=== PATIENT | female | born 2000 | race African-American/Black ===

== ENCOUNTER 2022-06-15 19:17 | Observation (INO) ==
[2022-06-15] MEDS ORDERED: ONDANSETRON INJ 2 MG/ML 2 ML VIAL IV STA (19:23)
[2022-06-15 20:43] LABS: Basophils # (auto) 0.04 K/uL (0-0.2); Basophils % (auto) 0.6 %; Hematocrit (blood only) 43.9 % (37.0-47.0); Hemoglobin 15.5 g/dl (12.0-16.0); Immature Granulocytes # (auto) 0.01 K/uL (0.01-0.20); Immature Granulocytes % (auto) 0.1 %; Lymphocytes # (auto) 2.34 K/uL (1.2-3.4); Lymphocytes % (auto) 33.5 %; Mean Corpuscular Hemoglobin 31.6 pg (25.0-34.0); Mean Corpuscular Hgb Conc 35.3 g/dL (32.0-36.0); Mean Corpuscular Volume 89.4 fL (80.0-100.0); Mean Platelet Volume 10.1 fL (9.4-12.4); Monocytes # (auto) 0.42 K/uL (0.11-0.59); Neutrophils # (auto) 4.17 K/uL (1.40-6.50); Neutrophils % (auto) 59.8 %; Platelet Count 265 K/uL (130-400); RDW Coefficient of Variation 11.5 % (11.5-14.5); RDW Standard Deviation 37.6 fL (36.4-46.3); Red Blood Count 4.91 M/uL (4.20-5.40); White Blood Count 6.98 K/ul (4.8-10.8)
--- NOTE | 2022-06-15 21:19 | Emergency Department Note ---
Impression & Plan Nausea & vomiting, Marijuana user, UTI (urinary tract infection) ED Provider Note INFORMANT: Patient ED PROVIDER(S): Cj Tanner DO CHIEF COMPLAINT: Nausea and vomiting PLAN: Disposition: Admission Outpatient prescription management: none Discussion with: I spoke with the hospitalist, who will see the patient for admission/observation and further evaluation and consultation. MEDICAL DECISION MAKING: This is a 21-year-old female who presents to the ED with a chief complaint of nausea and vomiting. Symptoms started on Tuesday morning. She reports mostly dry heaves at this point. About every 2 hours. She was seen here yesterday and discharged on Zofran ODT which did not help. The patient does admit to using marijuana. She had been drinking this weekend prior to her symptom onset. The patient reports generalized abdominal discomfort related to her retching. She did not have any abdominal pain yesterday or tenderness. The patient denies any diarrhea. No urinary symptoms. Exam does reveal some mild diffuse abdominal tenderness likely related to vomiting. No focal tenderness. Vital signs reveal hypertension. CBC did not show leukocytosis or anemia. Chemistry panel did not show electrolyte abnormality or kidney dysfunction. The urinalysis suggest a UTI. She was given IV fluids as well as IV Zofran and IV cefepime. Because of her ongoing dry heaves, she will be seen by the hospitalist for further inpatient management of her UTI and vomiting. Triage Nursing notes reviewed. Vital Signs: reviewed Prior /Outside records reviewed:Yesterday's ER visit reviewed Differential diagnosis: Nausea, vomiting, dehydration, electrolyte abnormality, pancreatitis, cholecystitis, hyperemesis related to marijuana use Diagnostics, as interpreted by me: 12 lead ECG: none Cardiac Monitoring ordered: none Medical decision rules: none Imaging studies: none Procedures: none. Critical care: none. HPI: See MDM above. PAST MEDICAL HISTORY: See Below PAST SURGICAL HISTORY: See Below SOCIAL HISTORY: See Below HOME MEDICATIONS: See Below ALLERGIES: See Below VITALS: See Below PHYSICAL EXAMINATION: See MDM for positive findings otherwise unremarkable. CONSTITUTIONAL/VITAL SIGNS: Reviewed GENERAL:done as appropriate INTEGUMENTARY: done as appropriate HEAD: done as appropriate EYES: done as appropriate RESPIRATORY: done as appropriate CARDIOVASCULAR:done as appropriate GI/ABDOMEN:done as appropriate EXTREMITIES: done as appropriate NEUROLOGICAL: done as appropriate PSYCHIATRIC:done as appropriate MUSCULOSKELETAL:done as appropriate TRIAGE NURSING DOCUMENTATION REVIEWED. Past Med/Surg History Medical History No pertinent family history No pertinent past medical history Surgical History No pertinent past surgical history Social History Smoking Status: Never smoker Preferred Language: Japanese Feels Safe at Home: Yes Allergies Allergies Allergy/AdvReac Type Severity Reaction Status Date / Time No Known Allergies Allergy Verified 06/15/22 21:48 Home Meds Home Medications Medication Instructions Recorded Confirmed Control Pill 1 tab PO DAILY 06/15/22 06/15/22 albuterol sulfate 90 mcg/actuation 2 puff inhalation DIRECTED PRN 06/15/22 06/15/22 aerosol inhaler Shortness Of Breath Or Wheezing Results & Data (ED) Vital Signs Vital Signs - 24 hr 06/15/22 19:20 06/15/22 21:04 06/15/22 20:05 Temperature 37 C Temperature Source Temporal Artery Scan Pulse Rate 72 55 L Pulse Rate [Right Finger] 52 L Respiratory Rate 16 Respiratory Effort / Characteristics Non-Labored Spontaneous Respiratory Depth Normal Respiratory Pattern Regular Blood Pressure 144/99 H Blood Pressure [Right Arm] 141/104 H Blood Pressure Mean 114 Blood Pressure Mean [Right Arm] 116 Pulse Oximetry 99 100 Oxygen Delivery Method Room Air Room Air Sepsis Recent Fever Within 48 Hours No Sepsis New/Unexplained Change in Mental Status No Sepsis Action Taken by Nursing No Action Required 06/15/22 23:30 Temperature Temperature Source Pulse Rate Pulse Rate [Right Finger] 74 Respiratory Rate 16 Respiratory Effort / Characteristics Non-Labored Spontaneous Respiratory Depth Normal Respiratory Pattern Regular Blood Pressure Blood Pressure [Right Arm] 154/91 H Blood Pressure Mean Blood Pressure Mean [Right Arm] 112 Pulse Oximetry 99 Oxygen Delivery Method Room Air Sepsis Recent Fever Within 48 Hours Sepsis New/Unexplained Change in Mental Status Sepsis Action Taken by Nursing Laboratory Data 06/15/22 20:15 06/15/22 20:15 Lab Results 06/15/22 06/15/22 06/15/22 Range/Units 20:15 20:15 21:00 WBC 6.98 (4.8-10.8) K/ul RBC 4.91 (4.20-5.40) M/uL Hgb 15.5 (12.0-16.0) g/dl Hct 43.9 (37.0-47.0) % MCV 89.4 (80.0-100.0) fL MCH 31.6 (25.0-34.0) pg MCHC 35.3 (32.0-36.0) g/dL RDW Std Deviation 37.6 (36.4-46.3) fL RDW Coeff of [place] 11.5 (11.5-14.5) % Plt Count 265 (130-400) K/uL MPV 10.1 (9.4-12.4) fL Immature Gran % (Auto) 0.1 % Neut % (Auto) 59.8 % Lymph % (Auto) 33.5 % [place] % (Auto) 6.0 % Eos % (Auto) 0.0 % Baso % (Auto) 0.6 % Neut # (Auto) 4.17 (1.40-6.50) K/uL Lymph # (Auto) 2.34 (1.2-3.4) K/uL [place] # (Auto) 0.42 (0.11-0.59) K/uL Eos # (Auto) 0.00 (0-0.50) K/uL Baso # (Auto) 0.04 (0-0.2) K/uL Immature Gran # (Auto) 0.01 (0.01-0.20) K/uL Sodium 137 (136-145) mmol/L Potassium 3.5 (3.5-5.1) mmol/L Chloride 98 (98-107) mmol/L Carbon Dioxide 29 (21-32) mmol/L Anion Gap 10 (3-11) BUN 14 (6-23) mg/dl Creatinine 0.89 (0.6-1.2) mg/dl Est Cr Clr Drug Dosing 71.8 ml/min Est GFR ( Amer) 107.4 ml/min Est GFR (Non-Af Amer) 92.6 ml/min BUN/Creatinine Ratio 15.7 (10-20) Glucose 96 (70-99(Fasting)) mg/dl Calcium 10.6 H (8.5-10.1) mg/dl Total Bilirubin 2.2 H D (0.2-1.0) mg/dl AST 21 (13-39) U/L ALT 17 (7-52) U/L Alkaline Phosphatase 65 (34-104) U/L Total Protein 8.9 H (6.0-8.3) gm/dl Albumin 5.4 H (3.4-5.0) gm/dl Globulin 3.5 (2.5-4.0) gm/dl Albumin/Globulin Ratio 1.5 (0.9-2) Lipase 17 (11-82) U/L Urine Color Dark Yellow Urine Appearance Cloudy A (Clear) Urine pH 7.5 (4.5-7.5) Ur Specific [place] 1.034 H (1.000-1.030) Urine Protein 1+ H (Negative) Urine Glucose (UA) Negative (Negative) Urine Ketones 4+ H (Negative) Urine Blood Trace H (Negative) Urine Nitrite Positive A (Negative) Urine Bilirubin Negative (Negative) Urine Urobilinogen Positive H (Negative) Ur Leukocyte Esterase 1+ H (Negative) Urine WBC (Auto) >30 H (0-5) /hpf Urine RBC (Auto) 0-4 (0-4) /hpf U Hyaline Cast (Auto) 0 (0-5) /lpf U Epithel Cells (Auto) >30 H (0-5) /lpf Urine Bacteria (Auto) 2+ H (Negative) Triple Phos Crystals Present A (None Prsent) Urine Mucus Present A (None Prsent) POC Ur Test (NEG) 06/15/22 Range/Units 21:08 WBC (4.8-10.8) K/ul RBC (4.20-5.40) M/uL Hgb (12.0-16.0) g/dl Hct (37.0-47.0) % MCV (80.0-100.0) fL MCH (25.0-34.0) pg MCHC (32.0-36.0) g/dL RDW Std Deviation (36.4-46.3) fL RDW Coeff of [place] (11.5-14.5) % Plt Count (130-400) K/uL MPV (9.4-12.4) fL Immature Gran % (Auto) % Neut % (Auto) % Lymph % (Auto) % [place] % (Auto) % Eos % (Auto) % Baso % (Auto) % Neut # (Auto) (1.40-6.50) K/uL Lymph # (Auto) (1.2-3.4) K/uL [place] # (Auto) (0.11-0.59) K/uL Eos # (Auto) (0-0.50) K/uL Baso # (Auto) (0-0.2) K/uL Immature Gran # (Auto) (0.01-0.20) K/uL Sodium (136-145) mmol/L Potassium (3.5-5.1) mmol/L Chloride (98-107) mmol/L Carbon Dioxide (21-32) mmol/L Anion Gap (3-11) BUN (6-23) mg/dl Creatinine (0.6-1.2) mg/dl Est Cr Clr Drug Dosing ml/min Est GFR ( Amer) ml/min Est GFR (Non-Af Amer) ml/min BUN/Creatinine Ratio (10-20) Glucose (70-99(Fasting)) mg/dl Calcium (8.5-10.1) mg/dl Total Bilirubin (0.2-1.0) mg/dl AST (13-39) U/L ALT (7-52) U/L Alkaline Phosphatase (34-104) U/L Total Protein (6.0-8.3) gm/dl Albumin (3.4-5.0) gm/dl Globulin (2.5-4.0) gm/dl Albumin/Globulin Ratio (0.9-2) Lipase (11-82) U/L Urine Color Urine Appearance (Clear) Urine pH (4.5-7.5) Ur Specific [place] (1.000-1.030) Urine Protein (Negative) Urine Glucose (UA) (Negative) Urine Ketones (Negative) Urine Blood (Negative) Urine Nitrite (Negative) Urine Bilirubin (Negative) Urine Urobilinogen (Negative) Ur Leukocyte Esterase (Negative) Urine WBC (Auto) (0-5) /hpf Urine RBC (Auto) (0-4) /hpf U Hyaline Cast (Auto) (0-5) /lpf U Epithel Cells (Auto) (0-5) /lpf Urine Bacteria (Auto) (Negative) Triple Phos Crystals (None Prsent) Urine Mucus (None Prsent) POC Ur Test NEG (NEG) Administered Medications Discontinued Medications Cefepime HCl (Maxipime) 2,000 mg in 20 mls @ 5 mls/min IV NOW STA; Protocol Stop: 06/15/22 22:07 Last Admin: 06/15/22 22:18 Dose: 5 mls/min Documented By: MEGHA Ondansetron HCl (Ondansetron Inj 2 Mg/Ml 2 Ml Vial) 4 mg IV NOW STA Stop: 06/15/22 19:24 Last Admin: 06/15/22 21:00 Dose: 4 mg Documented By: MEGHA Discharge Plan Visit Data Chief Complaint: Vomiting Stated Complaint: NAUSEA, VOMITING, BEEN VOMITING SINCE TUESDAY ED Provider: Cj Tanner Discharge Problem: Nausea & vomiting, Marijuana user, UTI (urinary tract infection) Patient Disposition: Being Evaluated by Hospitalist Forms Stand Alone Forms: My [facility] [employer] Prescriptions Prescriptions: No Action albuterol sulfate 90 mcg/actuation Hfa Aerosol Inhaler 2 puff INHALATION DIRECTED PRN (Reason: Shortness Of Breath Or Wheezing) Control Pill 1 tab PO DAILY Referrals Referrals: Subha Hoang DO [Primary Care Provider] -
[2022-06-15 21:21] LABS: Albumin Globulin Ratio 1.5 (0.9-2); Albumin Level 5.4 gm/dl (3.4-5.0); BUN Creatinine Ratio 15.7 (10-20); Bilirubin,Total 2.2 mg/dl (0.2-1.0); Calcium 10.6 mg/dl (8.5-10.1); Creatinine Clr Calc Pharmacy 71.8 ml/min; Est GFR (African American) 107.4 ml/min; Est GFR (Non-African American) 92.6 ml/min; Globulin 3.5 gm/dl (2.5-4.0); Potassium 3.5 mmol/L (3.5-5.1); Total Protein 8.9 gm/dl (6.0-8.3)
[2022-06-15 21:34] LABS: Appearance Urine Cloudy (Clear); Bacteria Urine Automated 2+ (Negative); Bilirubin Urine Negative (Negative); Blood Urine Trace (Negative); Color Urine Dark Yellow; Epithelial Cell Urine Auto >30 /lpf (0-5); Glucose Urine UA Negative (Negative); Ketones Urine 4+ (Negative); Leukocyte Esterase Urine 1+ (Negative); Nitrite Urine Positive (Negative); Specific Gravity Urine 1.034 (1.000-1.030); Urobilinogen Urine Positive (Negative); WBC Urine Automated >30 /hpf (0-5); pH Urine 7.5 (4.5-7.5)
[2022-06-15 22:01] LABS: Protein Urine 1+ (Negative)
[2022-06-15] MEDS ORDERED: CEFEPIME 2,000 MG/20 ML VIAL IV STA (22:04)
[2022-06-15 22:22] LABS: Triple Phosphate Crystal Urine Present (None Prsent)
[2022-06-15 22:23] LABS: Cast Urine Automated 0 /lpf (0-5); Mucus Urine Present (None Prsent); RBC Urine Automated 0-4 /hpf (0-4)
[2022-06-16 00:29] LABS: Amphetamines+Metham, Urine Neg (Neg); Barbiturates, Urine Neg (Neg); Benzodiazepine, Urine Neg (Neg); Cocaine, Urine Neg (Neg); MDMA (Ecstacy), Urine Neg (Neg); Methadone, Urine Neg (Neg); Opiate, Urine Neg (Neg); Phencyclidine, Urine Neg (Neg)
--- NOTE | 2022-06-16 01:06 | History & Physical Report ---
Date of Service June 16, 2022 Assessment & Plan (1) Cannabinoid hyperemesis syndrome: (2) Nausea & vomiting: (3) Marijuana user: (4) UTI (urinary tract infection): (5) Gilbert's syndrome: Plan Cannabinoid hyperemesis syndrome- Likely cause of intractable nausea and vomiting UDS positive for marijuana CT scan read as normal, but suggestive of ileus Continue n.p.o. for now, until symptoms are improved enough to be able to start liquid diet Zofran 4 mg IV every 6 hours as needed Phenergan 12.5 mg IV every 6 hours as needed NSS plus KCl 20 mEq at 125 MLS per hour UTI- Follow urine culture sensitivity Given cefepime 2 g IV from the ED Place on ceftriaxone 1 g IV daily Gilbert's syndrome- Total bilirubin 2.2, with otherwise normal LFTs History of Present Illness Chief Complaint: The patient presents to the emergency department with intractable nausea and vomiting since she was at a [employer] on Tuesday night, 3 nights ago. Primary Care Provider: Subha Hoang DO The patient is a 21-year-old female with a past medical history including asthma, marijuana use, and use of control pills. 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 She denies any abnormal food ingestions. She is not aware of any sick exposures. She does not have any change in bowel habits such as diarrhea. Significant abnormal laboratories: Hemoglobin 15.5, hematocrit 43.9, potassium 3.5, total bilirubin 2.2. Urinalysis suggestive of urinary tract infection Urine drug screen added is positive for marijuana. CT scan of abdomen and pelvis read by stat read as normal. CT scan from my reading suggest an ileus Allergies Allergy/AdvReac Type Severity Reaction Status Date / Time No Known Allergies Allergy Verified 06/15/22 21:48 Home Medications Medication Instructions Recorded Confirmed Type Control Pill 1 tab PO DAILY 06/15/22 06/15/22 History albuterol sulfate 90 mcg/actuation 2 puff inhalation DIRECTED PRN 06/15/22 06/15/22 History aerosol inhaler Shortness Of Breath Or Wheezing Past Med/Surg History Medical History No pertinent family history No pertinent past medical history Surgical History No pertinent past surgical history Social History Smoking Status: Never smoker Preferred Language: Ugandan Feels Safe at Home: Yes Review of Systems Review of Systems: The patient denies chest pain, palpitations, shortness of breath, dyspnea on exertion, cough, lower extremity swelling, sore throat, fevers, chills, sweats, blood in urine or stool, dysuria, urinary frequency or urgency, lightheadedness, dizziness, headache, memory loss, loss of consciousness, rash, abnormal bruising or bleeding, imbalance, focal weakness, numbness or tingling in arms or legs, generalized arthralgias or myalgias, back or neck pain, or night sweats. The review of systems is otherwise negative other than for that already noted above, and at least 10 systems have been reviewed. Physical Exam Physical Exam: The patient is awake, alert and oriented 3, well developed and well nourished, normocephalic and atraumatic, lying in bed and in no acute distress. HEENT--PERRL, EOMI, mucous membranes and oropharynx mildly dry. Neck--supple. No JVD. No bruits. Thyroid normal, trachea midline, no adenopathy. Heart--normal S1 and S2. No murmurs, rubs or gallops. Lungs--clear bilaterally, no respiratory distress, no accessory muscle use. Abdomen--normal bowel sounds and soft. Generalized tenderness. Extremities--no cyanosis or clubbing. No edema. Dermatologic--normal skin turgor, normal color, no abnormal lymph nodes, no rash. Neurologic--cranial nerves II through XII grossly intact. Rheumatologic--normal range of motion. Psychiatric--normal affect. Results & Data Results & Data ([facility]) Vital Signs (Past 12 Hours) Vital Signs Temp Pulse Pulse Resp BP BP Pulse Ox 06/15/22 23:30 74 16 154/91 H 99 06/15/22 20:05 55 L 06/15/22 21:04 52 L 141/104 H 100 06/15/22 19:20 37 C 72 16 144/99 H 99 O2 Del Method 06/15/22 23:30 Room Air 06/15/22 20:05 06/15/22 21:04 Room Air 06/15/22 19:20 Room Air Laboratory Results Laboratory Results WBC 6.98 K/ul (4.8-10.8) 06/15/22 20:15 RBC 4.91 M/uL (4.20-5.40) 06/15/22 20:15 Hgb 15.5 g/dl (12.0-16.0) 06/15/22 20:15 Hct 43.9 % (37.0-47.0) 06/15/22 20:15 MCV 89.4 fL (80.0-100.0) 06/15/22 20:15 MCH 31.6 pg (25.0-34.0) 06/15/22 20:15 MCHC 35.3 g/dL (32.0-36.0) 06/15/22 20:15 RDW Std Deviation 37.6 fL (36.4-46.3) 06/15/22 20:15 RDW Coeff of Lavelle 11.5 % (11.5-14.5) 06/15/22 20:15 Plt Count 265 K/uL (130-400) 06/15/22 20:15 MPV 10.1 fL (9.4-12.4) 06/15/22 20:15 Immature Gran % (Auto) 0.1 % 06/15/22 20:15 Neut % (Auto) 59.8 % 06/15/22 20:15 Lymph % (Auto) 33.5 % 06/15/22 20:15 [place] % (Auto) 6.0 % 06/15/22 20:15 Eos % (Auto) 0.0 % 06/15/22 20:15 Baso % (Auto) 0.6 % 06/15/22 20:15 Neut # (Auto) 4.17 K/uL (1.40-6.50) 06/15/22 20:15 Lymph # (Auto) 2.34 K/uL (1.2-3.4) 06/15/22 20:15 [place] # (Auto) 0.42 K/uL (0.11-0.59) 06/15/22 20:15 Eos # (Auto) 0.00 K/uL (0-0.50) 06/15/22 20:15 Baso # (Auto) 0.04 K/uL (0-0.2) 06/15/22 20:15 Immature Gran # (Auto) 0.01 K/uL (0.01-0.20) 06/15/22 20:15 Sodium 137 mmol/L (136-145) 06/15/22 20:15 Potassium 3.5 mmol/L (3.5-5.1) 06/15/22 20:15 Chloride 98 mmol/L (98-107) 06/15/22 20:15 Carbon Dioxide 29 mmol/L (21-32) 06/15/22 20:15 Anion Gap 10 (3-11) 06/15/22 20:15 BUN 14 mg/dl (6-23) 06/15/22 20:15 Creatinine 0.89 mg/dl (0.6-1.2) 06/15/22 20:15 Est Cr Clr Drug Dosing 71.8 ml/min 06/15/22 20:15 Est GFR ( Amer) 107.4 ml/min 06/15/22 20:15 Est GFR (Non-Af Amer) 92.6 ml/min 06/15/22 20:15 BUN/Creatinine Ratio 15.7 (10-20) 06/15/22 20:15 Glucose 96 mg/dl (70-99(Fasting)) 06/15/22 20:15 Calcium 10.6 mg/dl (8.5-10.1) H 06/15/22 20:15 Total Bilirubin 2.2 mg/dl (0.2-1.0) H D 06/15/22 20:15 AST 21 U/L (13-39) 06/15/22 20:15 ALT 17 U/L (7-52) 06/15/22 20:15 Alkaline Phosphatase 65 U/L (34-104) 06/15/22 20:15 Total Protein 8.9 gm/dl (6.0-8.3) H 06/15/22 20:15 Albumin 5.4 gm/dl (3.4-5.0) H 06/15/22 20:15 Globulin 3.5 gm/dl (2.5-4.0) 06/15/22 20:15 Albumin/Globulin Ratio 1.5 (0.9-2) 06/15/22 20:15 Lipase 17 U/L (11-82) 06/15/22 20:15 Urine Color Dark Yellow 06/15/22 21:00 Urine Appearance Cloudy (Clear) A 06/15/22 21:00 Urine pH 7.5 (4.5-7.5) 06/15/22 21:00 Ur Specific [place] 1.034 (1.000-1.030) H 06/15/22 21:00 Urine Protein 1+ (Negative) H 06/15/22 21:00 Urine Glucose (UA) Negative (Negative) 06/15/22 21:00 Urine Ketones 4+ (Negative) H 06/15/22 21:00 Urine Blood Trace (Negative) H 06/15/22 21:00 Urine Nitrite Positive (Negative) A 06/15/22 21:00 Urine Bilirubin Negative (Negative) 06/15/22 21:00 Urine Urobilinogen Positive (Negative) H 06/15/22 21:00 Ur Leukocyte Esterase 1+ (Negative) H 06/15/22 21:00 Urine WBC (Auto) >30 /hpf (0-5) H 06/15/22 21:00 Urine RBC (Auto) 0-4 /hpf (0-4) 06/15/22 21:00 U Hyaline Cast (Auto) 0 /lpf (0-5) 06/15/22 21:00 U Epithel Cells (Auto) >30 /lpf (0-5) H 06/15/22 21:00 Urine Bacteria (Auto) 2+ (Negative) H 06/15/22 21:00 Triple Phos Crystals Present (None Prsent) A 06/15/22 21:00 Urine Mucus Present (None Prsent) A 06/15/22 21:00 POC Ur Test NEG (NEG) 06/15/22 21:08 Urine Opiates Screen Neg (Neg) 06/15/22 21:00 Ur Methadone, Qual Neg (Neg) 06/15/22 21:00 Urine Barbiturates Neg (Neg) 06/15/22 21:00 Ur Phencyclidine (PCP) Neg (Neg) 06/15/22 21:00 U Amphetamin/Meth Scrn Neg (Neg) 06/15/22 21:00 MDMA (Ecstasy) Screen Neg (Neg) 06/15/22 21:00 U Benzodiazepines Scrn Neg (Neg) 06/15/22 21:00 Ur Cocaine Metabolite Neg (Neg) 06/15/22 21:00 U Marijuana (THC) Screen Pos (Neg) H 06/15/22 21:00 SARS-CoV-2, RNA, NAAT NEGATIVE (NEGATIVE) 06/16/22 00:00 Code Status & VTE Plan Code Status Full code VTE Prophylaxis Plan VTE Prophylaxis will be ordered: Yes PG Care Time/CCT Total # of Minutes Spent Total Time Spent with Patient: Total time spent is greater than 50% in coordination of care (as documented) at patient's floor/unit and/or counseling patient: Coding Level of Care Code 01144 INT INP/OBS CARE 2/55MIN Diagnoses Cannabinoid hyperemesis syndrome R11.2; F12.90 Nausea & vomiting R11.2 Marijuana user F12.90 UTI (urinary tract infection) N39.0 Gilbert's syndrome E80.4
[2022-06-16] MEDS ORDERED: PROMETHAZINE HCL 12.5 MG in SODIUM CHLORIDE 0.9% 50 ML IV PRN (02:22)
[2022-06-16] MEDS ORDERED: ALBUTEROL HFA 8 GM INHALER INH PRN (02:22)
[2022-06-16] MEDS: ACETAMINOPHEN 325 MG TAB PO PRN ×3 (02:44→21:30)
[2022-06-16] MEDS: NSS + 20MEQ KCL 20 MEQ/1,000 ML BAG IV SCH ×3 (03:24→21:27)
--- NOTE | 2022-06-16 08:31 | CT Scan Report ---
CT abd pelvis wo con CLINICAL HISTORY: intractable nausea and vomiting TECHNIQUE: Helical axial images of the abdomen and pelvis were obtained. Automated dose lowering tech niques and/or adjustment according to patient size were utilized for this exam. This exam was perfor med without intravenous contrast. CT DOSE: 272.20 mGy.cm COMPARISON: Comparison is made to chest and abdomen 06/14/2022 FINDINGS: Lower chest: No acute abnormality. Liver: Unremarkable. No focal lesions are seen. Gallbladder and biliary tree: No calcified gallstones. Normal caliber wall. No intra- or extrahepatic biliary ductal dilation. Pancreas: Unremarkable, no focal lesions. Spleen: Unremarkable. Adrenals: Unremarkable. Kidneys and ureters: Unremarkable. Bladder: Unremarkable. Reproductive organs: Intrauterine device is noted. Bowel: The appendix is normal. Lymph nodes Retroperitoneal: Unremarkable. Pelvic: Unremarkable. Mesenteric: Unremarkable. Peritoneum: Normal. Vessels: Unremarkable. Abdominal wall: Unremarkable. Bones: Unremarkable. IMPRESSION: No acute abnormalities in particular no evidence of bowel obstruction. ACT 112: Negative or not required by law. Electronically signed by: Lakhwinder Lujan M.D. 06/16/2022 8:30 AM
[2022-06-16] MEDS: cefTRIAXone SODIUM 1,000 MG in DEXTROSE 5% AD-VAN 50 ML IV SCH (09:18)
[2022-06-16] MEDS: FAMOTIDINE 20 MG in SYRINGE 3 ML IV SCH ×2 (10:05→21:27)
[2022-06-16] MEDS: ONDANSETRON INJ 2 MG/ML 2 ML VIAL IV PRN (11:04)
--- NOTE | 2022-06-16 16:12 | Hospitalist Progress Note ---
Date of Service June 16, 2022 Assessment & Plan (1) Nausea & vomiting: Plan: etiology?? viral infection/gastroenteritis? biliary tract disease? PUD? 2nd to UTI? other? doubt hyperemesis syndrome from THC - denies daily, heavy usage - but can't rule this out fully. did ask her to take a hot shower to see if this helps. recheck lipase, LFTs today. check RUQ u/s - r/o biliary tract disease. allow clears as tolerated. cont IV fluids. (2) Marijuana user: Plan: not daily user but does admit to recreational, occasional use (3) UTI (urinary tract infection): Plan: u/a highly suggestive of such but cx thus far negative cont rocephin check urine for GC/chlamydia (4) Elevated bilirubin: Plan: etiology? Gilbert's? other? see #1 above (5) Abdominal pain: Plan: add pepcid IV anti-emetics recheck lipase/lfts check RUQ u/s Plan change observation status to full admission cont supportive care Admission and Anticipated Discharge Date Admission Date: June 16, 2022 Subjective tried taking some clears today and promptly had emesis mild upper abdominal discomfort no stools or diarrhea feels very tired states she does use THC but not on regular, daily basis no obvious sick contacts no travel Review of Systems Review of Systems: gen - no fevers/rigors, poor appetite, tired cv - no cp pulm - no cough or dyspnea - no dysuria musculo - no myalgias neuro - no headache Physical Exam Physical Exam: gen - looks unwell but NAD mouth - MMM neck - no JVD heart - RRR, s1 s2, no murmur lungs - CTA b/l abd - soft but mildly tender upper epigastric area; BS+; no HSM; no peritoneal signs ext - no edema, pulses 2+ b/l skin - no rash Results & Data Results & Data ([facility]) Vital Signs (Past 12 Hours) Vital Signs Temp Pulse Resp BP Pulse Ox O2 Del Method 06/16/22 15:19 37.2 C 48 L 16 141/89 H 98 Room Air 06/16/22 07:54 37.5 C 70 16 138/84 100 Room Air Laboratory Results Laboratory Results - last 48 hr 02/28/23 02/28/23 02/28/23 20:15 20:15 21:00 WBC 6.98 RBC 4.91 Hgb 15.5 Hct 43.9 MCV 89.4 MCH 31.6 MCHC 35.3 RDW Std Deviation 37.6 RDW Coeff of [place] 11.5 Plt Count 265 MPV 10.1 Immature Gran % (Auto) 0.1 Neut % (Auto) 59.8 Lymph % (Auto) 33.5 [place] % (Auto) 6.0 Eos % (Auto) 0.0 Baso % (Auto) 0.6 Neut # (Auto) 4.17 Lymph # (Auto) 2.34 [place] # (Auto) 0.42 Eos # (Auto) 0.00 Baso # (Auto) 0.04 Immature Gran # (Auto) 0.01 Sodium 137 Potassium 3.5 Chloride 98 Carbon Dioxide 29 Anion Gap 10 BUN 14 Creatinine 0.89 Est Cr Clr Drug Dosing 71.8 Est GFR ( Amer) 107.4 Est GFR (Non-Af Amer) 92.6 BUN/Creatinine Ratio 15.7 Glucose 96 Calcium 10.6 H Magnesium Total Bilirubin 2.2 H D Direct Bilirubin AST 21 ALT 17 Alkaline Phosphatase 65 C-Reactive Protein Total Protein 8.9 H Albumin 5.4 H Globulin 3.5 Albumin/Globulin Ratio 1.5 Lipase 17 Urine Color Dark Yellow Urine Appearance Cloudy A Urine pH 7.5 Ur Specific [place] 1.034 H Urine Protein 1+ H Urine Glucose (UA) Negative Urine Ketones 4+ H Urine Blood Trace H Urine Nitrite Positive A Urine Bilirubin Negative Urine Urobilinogen Positive H Ur Leukocyte Esterase 1+ H Urine WBC (Auto) >30 H Urine RBC (Auto) 0-4 U Hyaline Cast (Auto) 0 U Epithel Cells (Auto) >30 H Urine Bacteria (Auto) 2+ H Triple Phos Crystals Present A Urine Mucus Present A POC Ur Test Urine Opiates Screen Ur Methadone, Qual Urine Barbiturates Ur Phencyclidine (PCP) U Amphetamin/Meth Scrn MDMA (Ecstasy) Screen U Benzodiazepines Scrn Ur Cocaine Metabolite U Marijuana (THC) Screen SARS-CoV-2, RNA, NAAT 06/15/22 06/15/22 06/16/22 21:00 21:08 00:00 WBC RBC Hgb Hct MCV MCH MCHC RDW Std Deviation RDW Coeff of [place] Plt Count MPV Immature Gran % (Auto) Neut % (Auto) Lymph % (Auto) [place] % (Auto) Eos % (Auto) Baso % (Auto) Neut # (Auto) Lymph # (Auto) [place] # (Auto) Eos # (Auto) Baso # (Auto) Immature Gran # (Auto) Sodium Potassium Chloride Carbon Dioxide Anion Gap BUN Creatinine Est Cr Clr Drug Dosing Est GFR ( Amer) Est GFR (Non-Af Amer) BUN/Creatinine Ratio Glucose Calcium Magnesium Total Bilirubin Direct Bilirubin AST ALT Alkaline Phosphatase C-Reactive Protein Total Protein Albumin Globulin Albumin/Globulin Ratio Lipase Urine Color Urine Appearance Urine pH Ur Specific [place] Urine Protein Urine Glucose (UA) Urine Ketones Urine Blood Urine Nitrite Urine Bilirubin Urine Urobilinogen Ur Leukocyte Esterase Urine WBC (Auto) Urine RBC (Auto) U Hyaline Cast (Auto) U Epithel Cells (Auto) Urine Bacteria (Auto) Triple Phos Crystals Urine Mucus POC Ur Test NEG Urine Opiates Screen Neg Ur Methadone, Qual Neg Urine Barbiturates Neg Ur Phencyclidine (PCP) Neg U Amphetamin/Meth Scrn Neg MDMA (Ecstasy) Screen Neg U Benzodiazepines Scrn Neg Ur Cocaine Metabolite Neg U Marijuana (THC) Screen Pos H SARS-CoV-2, RNA, NAAT NEGATIVE 06/16/22 16:25 WBC RBC Hgb Hct MCV MCH MCHC RDW Std Deviation RDW Coeff of [place] Plt Count MPV Immature Gran % (Auto) Neut % (Auto) Lymph % (Auto) [place] % (Auto) Eos % (Auto) Baso % (Auto) Neut # (Auto) Lymph # (Auto) [place] # (Auto) Eos # (Auto) Baso # (Auto) Immature Gran # (Auto) Sodium 136 Potassium 3.9 Chloride 104 Carbon Dioxide 25 Anion Gap 7 BUN 11 Creatinine 0.72 Est Cr Clr Drug Dosing 88.8 Est GFR ( Amer) 138.7 Est GFR (Non-Af Amer) 119.7 BUN/Creatinine Ratio 15.3 Glucose 83 Calcium 9.0 Magnesium Total Bilirubin 1.7 H Direct Bilirubin AST 16 ALT 15 Alkaline Phosphatase 53 C-Reactive Protein < 0.50 Total Protein 7.2 Albumin 4.3 Globulin 2.9 Albumin/Globulin Ratio 1.5 Lipase 11 Urine Color Urine Appearance Urine pH Ur Specific [place] Urine Protein Urine Glucose (UA) Urine Ketones Urine Blood Urine Nitrite Urine Bilirubin Urine Urobilinogen Ur Leukocyte Esterase Urine WBC (Auto) Urine RBC (Auto) U Hyaline Cast (Auto) U Epithel Cells (Auto) Urine Bacteria (Auto) Triple Phos Crystals Urine Mucus POC Ur Test Urine Opiates Screen Ur Methadone, Qual Urine Barbiturates Ur Phencyclidine (PCP) U Amphetamin/Meth Scrn MDMA (Ecstasy) Screen U Benzodiazepines Scrn Ur Cocaine Metabolite U Marijuana (THC) Screen SARS-CoV-2, RNA, NAAT PG Care Time/CCT Total # of Minutes Spent Total Time Spent with Patient: Total time spent is greater than 50% in coordination of care (as documented) at patient's floor/unit and/or counseling patient: Coding Level of Care Code 97508 SUB INP/OBS CARE 2/35MIN Diagnoses Nausea & vomiting R11.2 Marijuana user F12.90 UTI (urinary tract infection) N39.0 Elevated bilirubin R17 Abdominal pain R10.9
[2022-06-16 17:12] LABS: Alanine Aminotransferase 15 U/L (7-52); Albumin Globulin Ratio 1.5 (0.9-2); Albumin Level 4.3 gm/dl (3.4-5.0); Alkaline Phosphatase 53 U/L (34-104); Anion Gap 7 (3-11); Aspartate Aminotransferase 16 U/L (13-39); BUN Creatinine Ratio 15.3 (10-20); Bilirubin,Total 1.7 mg/dl (0.2-1.0); Blood Urea Nitrogen 11 mg/dl (6-23); C Reactive Protein < 0.50 mg/dl (0-0.5); Carbon Dioxide 25 mmol/L (21-32); Chloride 104 mmol/L (98-107); Creatinine Clr Calc Pharmacy 88.8 ml/min; Est GFR (African American) 138.7 ml/min; Est GFR (Non-African American) 119.7 ml/min; Globulin 2.9 gm/dl (2.5-4.0); Glucose 83 mg/dl (70-99(Fasting)); Lipase 11 U/L (11-82); Potassium 3.9 mmol/L (3.5-5.1); Sodium 136 mmol/L (136-145); Total Protein 7.2 gm/dl (6.0-8.3)
[2022-06-17] MEDS: ONDANSETRON INJ 2 MG/ML 2 ML VIAL IV PRN (01:57)
[2022-06-17] MEDS: NSS + 20MEQ KCL 20 MEQ/1,000 ML BAG IV SCH ×2 (06:11→18:14)
[2022-06-17 07:49] LABS: BUN Creatinine Ratio 12.8 (10-20); Bilirubin Direct 0.3 mg/dl (0-0.2); Bilirubin,Total 1.7 mg/dl (0.2-1.0); Calcium 9.1 mg/dl (8.5-10.1); Est GFR (Non-African American) 108.7 ml/min; Magnesium 1.9 mg/dl (1.7-2.4); Potassium 4.2 mmol/L (3.5-5.1)
[2022-06-17] MEDS: cefTRIAXone SODIUM 1,000 MG in DEXTROSE 5% AD-VAN 50 ML IV SCH (09:26)
[2022-06-17] MEDS: FAMOTIDINE 20 MG in SYRINGE 3 ML IV SCH ×2 (09:30→20:26)
--- NOTE | 2022-06-17 10:59 | Ultrasound Report ---
ABDOMINAL ULTRASOUND, RIGHT UPPER QUADRANT HISTORY: elevated bilirubin, RUQ pain. COMPARISON: Abdomen and pelvis CT 06/16/2022. FINDINGS: Pancreas: The pancreas demonstrates a normal echotexture. Liver: Unremarkable. Gallbladder: No gallbladder wall thickening. No gallstones. CBD: 3 mm. Right kidney: No hydronephrosis. IMPRESSION: No significant abnormality identified within the right upper quadrant. ACT 112: Negative or not required by law. Electronically signed by: Bob Simental M.D. 06/17/2022 10:57 AM
--- NOTE | 2022-06-17 11:35 | Hospitalist Progress Note ---
Date of Service June 17, 2022 Assessment & Plan (1) Nausea & vomiting: Plan: etiology?? viral infection/gastroenteritis? did perform Biofire panel and fully negative biliary tract disease? but CT a/p negative and RUQ u/s neg; t bili stable PUD? 2nd to UTI? repeat u/a today IS improved relative to ua at admission other? pelvic/circuit rider infection? doubt hyperemesis syndrome from THC - denies daily, heavy usage - but can't rule this out fully. allowing clears as tolerated but not taking anything by mouth. cont IV fluids but can lower rate to maintenance at this point; she is well- hydrated. (2) Marijuana user: Plan: not daily user but does admit to recreational, occasional use (3) UTI (urinary tract infection): Plan: u/a highly suggestive of such but cx negative cont rocephin for now checked urine for GC/chlamydia consider circuit rider consult given the blood with wiping (but no gross hematuria per patient or staff) vaginal bleeding? (4) Elevated bilirubin: Plan: etiology? Gilbert's? other? see #1 above (5) Abdominal pain: Plan: improved with pepcid IV anti-emetics rechecked lipase/lfts - normal except mildly elevated t bili RUQ u/s negative Plan cont supportive care I am concerned that her symptoms started after attending a libertarian 3 days prior to admission I am concerned that overall she is not improving Could symptoms be circuit rider in origin (PID, etc)? other? Admission and Anticipated Discharge Date Admission Date: June 16, 2022 Subjective patient with no appetite her nausea is better, and vomiting has improved, but does not want to eat she almost has a fear of eating at this point had low-grade fever last pm but didn't notice such she now has a mild cough no URI symptoms otherwise no stools when she wiped earlier today after voiding she had blood with wiping the urine, however, does not have hematuria is amenorrheic since starting OCPs in the past does not have any spotting at any time denies vaginal discharge or pelvic pain Review of Systems Review of Systems: gen - still very tired, no appetite cv - no pain pulm - no dyspnea GI - mild upper abdominal discomfort - no dysuria psych - asked if she was depressed she wouldn't say; has had lights off and blinds drawn since admission Physical Exam Physical Exam: gen - looks unwell but NAD, laying in bed comfortably, poor eye contact, flat affect mouth - MMM neck - no JVD heart - RRR, s1 s2, no murmur lungs - CTA b/l abd - soft but scantly tender upper epigastric area; BS+; no HSM; no peritoneal signs ext - no edema, pulses 2+ b/l skin - no rash psych - flat affect Results & Data Results & Data ([facility]) Vital Signs (Past 12 Hours) Vital Signs Temp Pulse Resp BP Pulse Ox O2 Del Method 06/17/22 08:09 36.9 C 62 16 145/91 H 100 Room Air Laboratory Results Laboratory Results - last 24 hr 06/16/22 06/17/22 16:25 06:40 Sodium 136 136 Potassium 3.9 4.2 Chloride 104 105 Carbon Dioxide 25 24 Anion Gap 7 7 BUN 11 10 Creatinine 0.72 0.78 Est Cr Clr Drug Dosing 88.8 82.0 Est GFR ( Amer) 138.7 126.0 Est GFR (Non-Af Amer) 119.7 108.7 BUN/Creatinine Ratio 15.3 12.8 Glucose 83 74 Calcium 9.0 9.1 Magnesium 1.9 Total Bilirubin 1.7 H 1.7 H Direct Bilirubin 0.3 H AST 16 ALT 15 Alkaline Phosphatase 53 C-Reactive Protein < 0.50 Total Protein 7.2 Albumin 4.3 Globulin 2.9 Albumin/Globulin Ratio 1.5 Lipase 11 Diagnostic Findings Gallbladder Ultrasound 06/17/22 16:10 ABDOMINAL ULTRASOUND, RIGHT UPPER QUADRANT HISTORY: elevated bilirubin, RUQ pain. COMPARISON: Abdomen and pelvis CT 06/16/2022. FINDINGS: Pancreas: The pancreas demonstrates a normal echotexture. Liver: Unremarkable. Gallbladder: No gallbladder wall thickening. No gallstones. CBD: 3 mm. Right kidney: No hydronephrosis. IMPRESSION: No significant abnormality identified within the right upper quadrant. ACT 112: Negative or not required by law. Electronically signed by: Bob Simental M.D. 06/17/2022 10:57 AM urine cx - contaminants only PG Care Time/CCT Total # of Minutes Spent Total Time Spent with Patient: Total time spent is greater than 50% in coordination of care (as documented) at patient's floor/unit and/or counseling patient: Coding Level of Care Code 71254 SUB INP/OBS CARE 2/35MIN Diagnoses Nausea & vomiting R11.2 Marijuana user F12.90 UTI (urinary tract infection) N39.0 Elevated bilirubin R17 Abdominal pain R10.9
[2022-06-17] MEDS: ACETAMINOPHEN 325 MG TAB PO PRN (12:09)
[2022-06-17 12:31] LABS: Appearance Urine Clear (Clear); Bacteria Urine Automated Negative (Negative); Bilirubin Urine Negative (Negative); Blood Urine 1+ (Negative); Color Urine Yellow; Glucose Urine UA Negative (Negative); Ketones Urine 2+ (Negative); Leukocyte Esterase Urine Negative (Negative); Nitrite Urine Negative (Negative); Protein Urine Negative (Negative); RBC Urine Automated 0-4 /hpf (0-4); Specific Gravity Urine 1.009 (1.000-1.030); Urobilinogen Urine Negative (Negative)
[2022-06-17 14:11] LABS: Adenovirus PCR Not Detected (NotDetected); Bordetella parapertussis PCR Not Detected (NotDetected); Bordetella pertussis PCR Not Detected (NotDetected); Chlamydia pneumoniae PCR Not Detected (NotDetected); Coronavirus 229E PCR Not Detected (NotDetected); Coronavirus CoV-2 (COVID19)PCR Not Detected (NotDetected); Coronavirus HKU1 PCR Not Detected (NotDetected); Coronavirus NL63 PCR Not Detected (NotDetected); Coronavirus OC43PCR Not Detected (NotDetected); Human Metapneumovirus PCR Not Detected (NotDetected); Influenza A PCR Not Detected (NotDetected); Influenza B PCR Not Detected (NotDetected); Mycoplasma pneumoniae PCR Not Detected (NotDetected); Parainfluenza Virus 1 PCR Not Detected (NotDetected); Parainfluenza Virus 2 PCR Not Detected (NotDetected); Parainfluenza Virus 3 PCR Not Detected (NotDetected); Parainfluenza Virus 4 PCR Not Detected (NotDetected); Respiratory Syncytial VirusPCR Not Detected (NotDetected); Rhinovirus/Enterovirus PCR Not Detected (NotDetected)
[2022-06-17 15:13] LABS: Chlam trach RNA(Genit,Ureth,Ur Not Detected (NotDetected); GC(Neis gon)RNA(Genit,Ureth,Ur Not Detected (NotDetected)
[2022-06-18] MEDS: cefTRIAXone SODIUM 1,000 MG in DEXTROSE 5% AD-VAN 50 ML IV SCH (08:53)
[2022-06-18 09:40] LABS: Marijuana Quant, GCMS Urine 1596 ng/mL (<5)
[2022-06-18] MEDS: FAMOTIDINE 20 MG in SYRINGE 3 ML IV SCH (10:22)
[2022-06-18] MEDS: NSS + 20MEQ KCL 20 MEQ/1,000 ML BAG IV SCH (10:22)
--- NOTE | 2022-06-18 18:47 | OB/GYN Consultation ---
Date of Consultation June 18, 2022 Assessment & Plan (1) Nausea & vomiting: Alma is a 21-year-old with intractable nausea and vomiting for the past few days. Patient appears to be feeling better and is tolerating diet without nausea or vomiting at present. patient is denying any symptoms of a pelvic infection and I see no digital imaging technician etiology of her nausea and vomiting although this is difficult to determine as symptoms have improved. Reviewed findings on imaging of IUD location and questionable malposition of the IUD. Patient is denying any typical symptoms associated with a malpositioned IUD. Discussed that an IUD that is malposition as long as it is still in the uterine cavity and is not causing symptoms is recommended to be left in place. Discussed that I would arrange digital imaging technician intake visit with ultrasound to further evaluate. Greater than 35 minutes was spent review of history and care of patient (2) Malpositioned IUD: History of Present Illness Attending Physician: Abdiel Eric History of Present Illness Alma is a 21-year-old admitted to the medicine service for intractable nausea and vomiting for several days without clear underlying etiology. At time of vis it patient was feeling much better and was tolerating p.o. well. Patient does have a Mirena IUD see and was having some discharge/light bleeding. There was some question about positioning on imaging in the ED. patient is denying any significant cramping or prolonged bleeding prior to current spotting. Denies any pelvic pain or abnormal discharge. I discussed with Trinidad that CT and x-ray are poor imaging modalities to determine IUD positioning and location. discussed that occasional bleeding with the is normal and expected even in patients with mostly amenorrhea with the IUD. Reviewed typical symptoms related to malpositioned IUD. Discussed indications for removal and replacement of a malpositioned IUD and answered multiple questions to the patient's satisfaction. Discussed that I would range clinic follow-up for her for further evaluation of IUD location and position and to establish digital imaging technician care. Allergies Allergy/AdvReac Type Severity Reaction Status Date / Time No Known Allergies Allergy Verified 06/15/22 21:48 Home Medications Medication Instructions Recorded Confirmed Type Control Pill 1 tab PO DAILY 06/15/22 06/15/22 History albuterol sulfate 90 mcg/actuation 2 puff inhalation DIRECTED PRN 06/15/22 06/15/22 History aerosol inhaler Shortness Of Breath Or Wheezing Patient History Medical History No pertinent family history No pertinent past medical history Surgical History No pertinent past surgical history Social History Smoking Status: Never smoker Do You Dip or Chew Tobacco: No; Hx Alcohol Use: Yes Alcohol type: hard liquor Hx Substance Use: Yes Last Used Substance: Days (ago) Last Used Substance Other:: marijuana use on tuesday06/12/22 Preferred Language: Portuguese Communication Ability: Effective Taxation Economist Required: No Beliefs That Will Affect Care: None Feels Safe at Home: Yes Safety Concerns: Feels Safe At This Time Assistive Devices: None Physical Exam Constitutional: WD/WN, vitals as above Patient sitting up and eating dinner at time of visit. Results & Data ([facility]) Vital Signs (Past 12 Hours) Vital Signs Temp Pulse Resp BP Pulse Ox O2 Del Method 06/18/22 15:11 37.1 C 70 16 108/72 99 Room Air 06/18/22 07:15 37.1 C 62 16 111/72 99 Room Air PG Care Time/CCT Total # of Minutes Spent Total Time Spent with Patient: Total time spent is greater than 50% in coordination of care (as documented) at patient's floor/unit and/or counseling patient: Coding Level of Care Code 65152 IN/OBS CONSULT LVL 2,35M Diagnoses Nausea & vomiting R11.2 Malpositioned IUD T83.32XA
[2022-06-18 20:49] VITALS: O2SAT 98
--- NOTE | 2022-06-18 21:03 | Hospitalist Progress Note ---
Date of Service June 18, 2022 Assessment & Plan (1) Nausea & vomiting: Plan: resolved. viral infection/gastroenteritis? did perform Biofire panel and fully negative biliary tract disease? but CT a/p negative and RUQ u/s neg; t bili stable PUD? remains on IV h2 landry 2nd to UTI? repeat u/a yesterday much improved relative to u/a at admission other? pelvic/manager nuclear infection? --> manager nuclear consult performed today; pelvic exam wnl, no pathology or concern for PID; appreciate manager nuclear consultation doubt hyperemesis syndrome from THC - denied daily, heavy usage regardless of etiology symptoms resolved and she is now tolerating regular diet stop IV fluids stop IV abx - change to PO abx stop IV H2 landry (2) Marijuana user: Plan: not daily user but does admit to recreational, occasional use (3) UTI (urinary tract infection): Plan: u/a highly suggestive of such but cx negative checked urine for GC/chlamydia - results pending day #3 of rocephin -- stop such change to keflex 500mg BID on 06/19/22 and treat for total 4 days (4) Elevated bilirubin: Plan: etiology? Gilbert's? other? see #1 above repeat LFTs am (5) Abdominal pain: Plan: resolved CT a/p, RUQ u/s, and other w/u negative pelvic exam by manager nuclear today wnl due to viral gastroenteritis or other viral process? gastritis? Plan if stable overnight and feeling well on 06/19 can d/c home then Admission and Anticipated Discharge Date Admission Date: June 16, 2022 Subjective patient feeling much better today still seeing some blood when wiping after voids; the urine is clear and w/o hematuria s abd pain resolved N/V resolved 2 small loose stools today appetite has returned, and she requested regular food this am since diet advancement she has tolerated such much more awake, alert, talkative, animated today Review of Systems Review of Systems: gen - no fevers cv - no chest pain pulm - no dyspnea GI - all symptoms resolved (except new diarrhea) Physical Exam Physical Exam: gen - looks much better today; awake, talkative mouth - MMM neck - no JVD heart - RRR, s1 s2, no murmur lungs - CTA b/l abd - soft, NT, ND, BS+, no HSM ext - no edema, pulses 2+ b/l skin - no rash psych - much more full affect today Results & Data Results & Data ([facility]) Vital Signs (Past 12 Hours) Vital Signs Temp Pulse Resp BP Pulse Ox O2 Del Method 06/18/22 20:48 37.3 C 77 16 102/60 98 Room Air 06/18/22 15:11 37.1 C 70 16 108/72 99 Room Air Laboratory Results Laboratory Results - last 24 hr 06/15/22 21:00 U Marijuana THC Carboxy 1596 H Drug Screen Comment SEE NOTE PG Care Time/CCT Total # of Minutes Spent Total Time Spent with Patient: Total time spent is greater than 50% in coordination of care (as documented) at patient's floor/unit and/or counseling patient: Coding Level of Care Code 85257 SUB INP/OBS CARE 2/35MIN Diagnoses Nausea & vomiting R11.2 Marijuana user F12.90 UTI (urinary tract infection) N39.0 Elevated bilirubin R17 Abdominal pain R10.9
[2022-06-19 08:23] VITALS: BP 110/54; TEMP 99
[2022-06-19] MEDS ORDERED: FAMOTIDINE 20 MG TAB PO SCH (09:00)
[2022-06-19] MEDS ORDERED: cephALEXin 500 MG CAP PO SCH (09:00)
[2022-06-19 09:04] LABS: Albumin Globulin Ratio 1.6 (0.9-2); Albumin Level 4.3 gm/dl (3.4-5.0); BUN Creatinine Ratio 15.2 (10-20); Bilirubin,Total 0.8 mg/dl (0.2-1.0); Calcium 9.7 mg/dl (8.5-10.1); Creatinine Clr Calc Pharmacy 80.9 ml/min; Globulin 2.7 gm/dl (2.5-4.0); Potassium 3.8 mmol/L (3.5-5.1)
--- NOTE | 2022-06-19 13:05 | Discharge Summary ---
Date of Service date of admission - June 16, 2022 date of discharge - June 19, 2022 Admission HPI Per Admitting Provider The patient is a 21-year-old female with a past medical history including asthma, marijuana use, and use of control pills. She presents to the emergency department with intractable nausea and vomiting since attending a republican 3 nights previously. She denies any abnormal food ingestions. She is not aware of any sick exposures. She does not have any change in bowel habits such as diarrhea. Significant abnormal laboratories: Hemoglobin 15.5, hematocrit 43.9, potassium 3.5, total bilirubin 2.2. Urinalysis suggestive of urinary tract infection Urine drug screen added is positive for marijuana. Principal Diagnosis 1. Nausea, vomiting, epigastric pain - resolved; 2nd to gastroenteritis vs UTI 2. Elevated bilirubin 3. THC use Discharge Exam gen - looks very good; NAD mouth - MMM neck - no JVD heart - RRR, s1 s2, no murmur lungs - CTA b/l abd - soft, NT, ND, BS+, no HSM ext - no edema, pulses 2+ b/l skin - no rash psych - much more full affect today Discharge Data Allergies Allergy/AdvReac Type Severity Reaction Status Date / Time No Known Allergies Allergy Verified 06/15/22 21:48 Consultations [facility] Gynecology - Dr Tulio Barraza Procedures Performed Respiratory BioFire panel - fully negative Ordered Studies Abdomen/Pelvis CT 06/16/22 00:07 CT abd pelvis wo con CLINICAL HISTORY: intractable nausea and vomiting TECHNIQUE: Helical axial images of the abdomen and pelvis were obtained. Automated dose lowering techniques and/or adjustment according to patient size were utilized for this exam. This exam was performed without intravenous contrast. CT DOSE: 272.20 mGy.cm COMPARISON: Comparison is made to chest and abdomen 06/14/2022 FINDINGS: Lower chest: No acute abnormality. Liver: Unremarkable. No focal lesions are seen. Gallbladder and biliary tree: No calcified gallstones. Normal caliber wall. No intra- or extrahepatic biliary ductal dilation. Pancreas: Unremarkable, no focal lesions. Spleen: Unremarkable. Adrenals: Unremarkable. Kidneys and ureters: Unremarkable. Bladder: Unremarkable. Reproductive organs: Intrauterine device is noted. Bowel: The appendix is normal. Lymph nodes Retroperitoneal: Unremarkable. Pelvic: Unremarkable. Mesenteric: Unremarkable. Peritoneum: Normal. Vessels: Unremarkable. Abdominal wall: Unremarkable. Bones: Unremarkable. IMPRESSION: No acute abnormalities in particular no evidence of bowel obstruction. ACT 112: Negative or not required by law. Electronically signed by: Lakhwinder Lujan M.D. 06/16/2022 8:30 AM Gallbladder Ultrasound 06/17/22 16:10 ABDOMINAL ULTRASOUND, RIGHT UPPER QUADRANT HISTORY: elevated bilirubin, RUQ pain. COMPARISON: Abdomen and pelvis CT 06/16/2022. FINDINGS: Pancreas: The pancreas demonstrates a normal echotexture. Liver: Unremarkable. Gallbladder: No gallbladder wall thickening. No gallstones. CBD: 3 mm. Right kidney: No hydronephrosis. IMPRESSION: No significant abnormality identified within the right upper quadrant. ACT 112: Negative or not required by law. Electronically signed by: Bob Simental M.D. 06/17/2022 10:57 AM Hospital Course (1) Nausea & vomiting: The patient had significant nausea, emesis, upper abdominal discomfort, and poor appetite for the first portion of her stay. She had a low-grade fever on one occasion as well. Although CT a/p was negative for any acute findings her symptomatology was suggestive of a viral gastroenteritis. The other possibility was that of UTI although urine culture returned negative. RUQ u/s was negative for any biliary tract disease. She was seen in consult by [facility] Gynecology and there was no evidence of any gynecologic problem responsible for her presentation. There was a question of whether her IUD was possibly malpositioned - see below. Urine for GC/chlamydia was negative. BioFire respiratory panel was negative. She was given IVF and supportive care for much of her stay. Her GI symptoms resolved. She was ultimately resumed on a clear liquid diet and then advanced to a regular diet. She tolerated this prior to discharge. In the event her symptoms were from a UTI she will complete a course of oral antibiotics at home (see below). (2) Marijuana user: not daily user but does admit to recreational, occasional use. doubt that she had THC associated hyperemesis syndrome as the cause of her symptoms. counseled patient to stop THC use if at all possible (3) UTI (urinary tract infection): suspected u/a highly suggestive of such but urine cx was negative checked urine for GC/chlamydia - results negative received 3 days of IV rocephin followed by keflex 500mg po BID x 4 days (4) Elevated bilirubin: peak total bilirubin level was 2.2. direct levels were normal. other LFTs were wnl. RUQ u/s showed a normal liver and normal biliary tract. her total bilirubin level normalized prior to discharge. suspect that this may represent Gilbert's syndrome. I explained this in detail to the patient. if she has future total bilirubin elevations with normal direct levels then she likely has this benign condition. she had no evidence of hemolysis while here. (5) Abdominal pain: resolved CT a/p, RUQ u/s, and other w/u negative gynecology evaluation was negative although there was some ? of IUD malpositioning suspect her upper abdominal discomfort was due to a gastroenteritis and/or UTI pain resolved with acid suppression & time (6) Malpositioned IUD: [facility] Gynecology saw patient in consult and counseled her that she should have inspector clip on sunglasses follow-up post-discharge to undergo pelvic ultrasound in the office. This will determine proper positioning of her IUD. Urine HCG was negative. She had no symptoms/signs of a gynecological infection. Urine GC/chlamydia was negative. Plan patient is relatively new to the [place] area she will be set up with a new PCP Total Time Total Time Spent Total Time Spent (In Minutes): 35 Discharge Plan Discharge Items Patient Disposition: Home - Self-Care Reason For Visit: NAUSEA AND VOMITING Discharge Diagnosis: 1. nausea and vomiting - possibly due to viral infection OR urinary tract infection OR combination of both - resolved 2. urinary tract infection - resolved 3. elevated bilirubin level - peak level 2.2; discharge level 0.8 (normal) Activity: Resume your previous activity Non-emergency contact: Primary Care Provider Call non-emergency contact if: you have any medication questions, your symptoms worsen and you have a fever Follow-up/Referrals: [facility] [Provider Group] (next week we will help you find a new primary care provider in [place] ) Tulio Barraza MD [Physician] - (3-4 months to check your IUD) Diet: Regular Addtl Attending Provider Instructions: Ms Peña, You were hospitalized for severe nausea & vomiting. Your CT scan of your abdomen did not show any abnormalities to explain your symptoms. Gall bladder ultrasound showed a healthy gall bladder and liver. A respiratory panel checking for various viruses was negative (no COVID, no influenza, etc). Your urinalysis was suspicious for urinary tract infection and you did receive several days of IV antibiotics. Although your urine culture was negative I would recommend finishing a course of antibiotic in the event there was indeed infection of the urinary tract. You improved with IV fluids, antibiotics, acid reducers for your stomach, etc. Dr Barraza from [facility] examined you and did not find anything in the pelvis (uterus, etc) that was causing your symptoms. A diet was started and you are tolerating food/beverage again. Finally, your bilirubin levels were mildly elevated during the stay. Your bilirubin level was normal the day you were discharged. This may suggest you have a benign condition called Gilbert's syndrome. If you have future blood work that shows the bilirubin level is mildly high this may suggest Gilbert's. Gilbert's is not harmful, does not cause medical problems, and does not require treatment or monitoring. Ultimately you either had a virus that caused all of your symptoms and/or you had urinary tract infection. Recommendations - 1. cephalexin 500mg twice daily x 7 more doses, first dose TONIGHT 06/19/22. This is your antibiotic for possible urinary tract infection 2. [id number] pepcid (famotidine) 20mg up to twice a day as needed for stomach upset 3. avoid fried foods, spicy foods, fast food, and excessive amounts of caffeine over the next few days as you recover 4. follow-up with Dr Barraza, [facility] Super[facility], in about 3-4 weeks for your IUD 5. please avoid recreational use of marijuana if possible Follow-up - we will help you obtain your follow-up appointments next week Return to [facility] if - * you develop recurrent fevers over 100.5 degrees * you have recurrent, severe nausea/vomiting * you have severe diarrhea * any other concerns It was our pleasure caring for you! Pending Studies at Discharge: No Stand-Alone Forms: [facility], Work/School Release, Smoking Cessation Medications and DC Order Prescriptions: New famotidine 20 mg Tablet 20 mg PO BID PRN (Reason: stomach upset) Qty: 10 0RF Rx Instructions: purchase [id number] cephalexin 500 mg Capsule 500 mg PO BID Qty: 7 0RF Continued albuterol sulfate 90 mcg/actuation Hfa Aerosol Inhaler 2 puff INHALATION DIRECTED PRN (Reason: Shortness Of Breath Or Wheezing) Discontinued Control Pill 1 tab PO DAILY Discharge Orders: Discharge Order (Routine); Ordered 06/19/22 Ordered By: Abdiel Eric Admission Data Admit Date/Time: 06/16/22 01:05 Attending Provider: Abdiel Eric Admit Provider: Dennis Driscoll Primary Care Provider: Subha Hoang Other Providers: Dennis Driscoll ; Tulio Barraza Other Interventions: Discharge Summary Assessment (RN) Last Done: 06/19/22 13:07 Coding Level of Care Code 27028 INP/OBS DISCH >30 MIN Diagnoses Nausea & vomiting R11.2 Marijuana user F12.90 UTI (urinary tract infection) N39.0 Elevated bilirubin R17 Abdominal pain R10.9 Malpositioned IUD T83.32XA
[2022-06-19 13:07] VITALS: PULSE 77
== END 2022-06-19 13:45 | disposition home or self-care (01) ==
LOC: ED 19:17 → 3E 19:17 → SUATTDRO 06-16 01:05 → 3E 06-16 02:55

== ENCOUNTER 2024-01-15 17:14 | Inpatient (IN) ==
[2024-01-15] MEDS: SODIUM CHLORIDE 0.9% 1,000 ML IV STA (17:33)
[2024-01-15] MEDS: ONDANSETRON INJ 2 MG/ML 2 ML VIAL IV STA (17:35)
[2024-01-15] MEDS: FAMOTIDINE 20MG IV PUSH 20 MG/5 ML SYR IV STA (17:39)
[2024-01-15] MEDS: PROMETHAZINE 12.5 MG/50.5 ML BAG IV STA (17:45)
--- NOTE | 2024-01-15 17:47 | Emergency Department Note ---
Impression & Plan Vomiting, Failure of outpatient treatment, Hypokalemia, Dysrhythmia, Prolonged QT interval ED Provider Note NAME: LIBRA CHUNG AGE: 23 SEX: F : 2000 ARRIVES VIA: Walk-In INFORMANT: [Patient] ED PROVIDER(S): [Bertram Valdes MD] CHIEF COMPLAINT: Vomiting HISTORY OF PRESENT ILLNESS: The patient is a 23-year-old female who has had 3 days of symptoms. She states that initially, she had some diffuse abdominal pain and diarrhea with vomiting. She came to our ER 2 days ago. She had a workup done that was reassuring, this included a CT of the abdomen pelvis. Eventually, she was feeling better and discharged. She was discharged with dicyclomine for nausea and for abdominal spasm. The patient states that her diarrhea seems to have resolved but now, she is still having the vomiting. She cannot tolerate any oral intake. She feels dehydrated. She still has some crampy abdominal pain but it does seem a bit less than before. There has been no fever, no cough. The patient states that this has happened to her before but it was secondary to alcohol. She has not had any alcohol to drink in months. The patient has been hospitalized in the past for similar symptoms. PMHx/PSHx/Social Hx: See Below PHYSICAL EXAM: GENERAL: Patient is in no acute distress. HEENT: No acute trauma, normocephalic atraumatic, mucous membranes moist, no nasal congestion. NECK: No stridor, no adenopathy, no meningismus, trachea is midline. LUNGS: Clear to auscultation bilaterally, no wheeze, no rhonchi, breath sounds equal. HEART: Without murmurs gallops or rubs, regular rate and rhythm. ABDOMEN: Soft, nontender, no peritonitis. EXTREMITIES: No cyanosis, full range of motion of all the joints without pain or difficulty. NEUROLOGIC: Oriented x 3, no acute motor or sensory deficits, no focal weakness. SKIN: No jaundice, no diaphoresis. DIFFERENTIAL DIAGNOSIS: Foodborne or viral illness, marijuana abuse, alcohol abuse, dehydration, electrolyte imbalance, failed outpatient management, among others. EMERGENCY DEPARTMENT PROCEDURES: MEDICAL DECISION MAKING: There is no leukocytosis. The patient has a higher hemoglobin, likely from dehydration. There is a normal platelet count. Potassium is low at 3.1. No renal failure. Bilirubin is slightly elevated, the remaining liver enzymes are unremarkable. There is no finding of pancreatitis. Patient appears to be in a euthyroid state. testing is negative. Urinalysis shows dehydration, no infection. Urine tox is pending. Abdominal series does not show bowel obstruction or free air. On exam, patient was not hypoxic or toxic. Patient's ECG shows some dysrhythmia. She appears to either have a sinus rhythm with PACs or a potentially wandering atrial pacemaker. Her QTc was prolonged. She is asymptomatic though and for now, monitoring is all that is needed. She may actually be having some of this dysrhythmia from her lower potassium. Given the failed outpatient management, given the persistent nausea and vomiting, given the low potassium and the dysrhythmia, I do think a hospital stay is warranted. I spoke with the patient, I spoke with case management, the on-call hospitalist was consulted. Prior/Outside records/notes reviewed: Previous ED visit note describing her presentation, results and planned outpatient care. ECG per my interpretation: Indication was weakness. The ECG shows what appears to be a sinus rhythm with PACs versus a wandering atrial pacemaker. The rate is 65. There was no acute ST elevation. No PVCs. QTc was prolonged at 553. Continuous Cardiac Monitoring per my interpretation: An order was placed for continuous cardiac monitoring. The monitor shows a rate of 71 with sinus rhythm with PACs versus a wandering atrial pacemaker. Imaging/x-ray results per my interpretation: Obstruction series does not show pneumonia, bowel obstruction or free air. Chronic Medical/Social conditions affecting care: None Care/Management discussed with: Case management, the on-call hospitalist. Level of care consideration(s): After review of the information above and other included data: --I believe the patient requires escalation of care to admission DISPOSITION: Admission Past Med/Surg History Problem List Prolonged QT interval (Acute) Dysrhythmia (Acute) Hypokalemia (Acute) Failure of outpatient treatment (Acute) Vomiting (Acute) Vomiting and diarrhea (Acute) Abdominal pain (Acute) Laceration of left little finger w/o foreign body w/o damage to nail (Acute) Medical History Malpositioned IUD Abdominal pain Elevated bilirubin Gilbert's syndrome UTI (urinary tract infection) Marijuana user Nausea & vomiting No pertinent past medical history No pertinent family history Surgical History No pertinent past surgical history Social History Smoking Status: Current every day smoker Tobacco Type: E-cigarettes / Vaping Do You Dip or Chew Tobacco: No; Hx Alcohol Use: Yes Alcohol type: hard liquor Hx Substance Use: Yes Last Used Substance: Days (ago) Last Used Substance Other:: marijuana use on tuesday06/12/22 Preferred Language: Arabic Communication Ability: Effective Optical Instrument Inspector Required: No Beliefs That Will Affect Care: None Feels Safe at Home: Yes Assistive Devices: None Allergies Allergies Allergy/AdvReac Type Severity Reaction Status Date / Time No Known Allergies Allergy Verified 03/09/23 00:50 Home Meds Home Medications Medication Instructions Recorded Confirmed albuterol sulfate 90 mcg/actuation 2 puff inhalation DIRECTED PRN 06/15/22 01/15/24 aerosol inhaler Shortness Of Breath Or Wheezing levonorgestrel 21 mcg/24 hr (up to 21 mcg intrauterine CONTINOUS 03/09/23 01/15/24 8 years) 52 mg intrauterine device (Mirena) Nausea Medication 1 tab PO DIRECTED PRN N/V 01/15/24 01/15/24 Results & Data (ED) Vital Signs Vital Signs - 24 hr 01/15/24 17:17 01/15/24 17:28 01/15/24 17:55 Temperature 36.1 C L Temperature Source Temporal Artery Scan Pulse Rate 71 75 Pulse Rate [Right Finger] 67 Respiratory Rate 20 17 Respiratory Effort / Characteristics Non-Labored Spontaneous Blood Pressure 131/98 Blood Pressure [Right Arm] 133/101 H Blood Pressure Mean 109 Blood Pressure Mean [Right Arm] 111 Blood Pressure Position [Right Arm] Lying Pulse Oximetry 98 99 Oxygen Delivery Method Room Air Room Air Sepsis Recent Fever Within 48 Hours No Sepsis New/Unexplained Change in Mental Status N/A Sepsis Action Taken by Nursing No Action Required Home Medications Current Medication List: was personally reviewed by me Laboratory Data Attestation: I reviewed the patient's lab results. 01/15/24 17:34 01/15/24 17:34 Lab Results 01/15/24 01/15/24 Range/Units 17:34 19:08 WBC 9.15 (4.8-10.8) K/ul RBC 5.46 H (4.20-5.40) M/uL Hgb 16.5 H (12.0-16.0) g/dl Hct 48.1 H (37.0-47.0) % MCV 88.1 (80.0-100.0) fL MCH 30.2 (25.0-34.0) pg MCHC 34.3 (32.0-36.0) g/dL RDW Std Deviation 36.7 (36.4-46.3) fL RDW Coeff of Lavelle 11.5 (11.5-14.5) % Plt Count 244 (130-400) K/uL MPV 10.5 (9.4-12.4) fL Immature Gran % (Auto) 0.3 % Neut % (Auto) 64.9 % Lymph % (Auto) 27.7 % [place] % (Auto) 6.6 % Eos % (Auto) 0.1 % Baso % (Auto) 0.4 % Neut # (Auto) 5.94 (1.40-6.50) K/uL Lymph # (Auto) 2.53 (1.20-3.40) K/uL [place] # (Auto) 0.60 H (0.11-0.59) K/uL Eos # (Auto) 0.01 (0.00-0.50) K/uL Baso # (Auto) 0.04 (0.00-0.20) K/uL Immature Gran # (Auto) 0.03 (0.01-0.20) K/uL Sodium 137 (136-145) mmol/L Potassium 3.1 L D (3.5-5.1) mmol/L Chloride 100 (98-107) mmol/L Carbon Dioxide 27 (21-32) mmol/L Anion Gap 10 (3-11) BUN 9 (6-23) mg/dl Creatinine 0.69 (0.6-1.2) mg/dl Est Cr Clr Drug Dosing 91.1 ml/min Est GFR ( Amer) 142.2 ml/min Est GFR (Non-Af Amer) 122.7 ml/min BUN/Creatinine Ratio 13.0 (10-20) Glucose 104 H (70-99(Fasting)) mg/dl Calcium 10.1 (8.6-10.3) mg/dl Magnesium 1.9 (1.7-2.4) mg/dl Total Bilirubin 1.3 H D (0.2-1.0) mg/dl AST 26 (13-39) U/L ALT 14 (7-52) U/L Alkaline Phosphatase 65 (34-104) U/L Total Protein 8.3 (6.0-8.3) gm/dl Albumin 5.1 H (3.4-5.0) gm/dl Globulin 3.2 (2.5-4.0) gm/dl Albumin/Globulin Ratio 1.6 (0.9-2) Lipase 15 (11-82) U/L TSH 1.137 (0.300-4.500) uIu/ml HCG, Qual Negative (Negative) Urine Color Yellow Urine Appearance Clear (Clear) Urine pH 7.5 (4.5-7.5) Ur Specific Rotan 1.009 (1.000-1.030) Urine Protein Negative (Negative) Urine Glucose (UA) Negative (Negative) Urine Ketones 1+ H (Negative) Urine Blood Negative (Negative) Urine Nitrite Negative (Negative) Urine Bilirubin Negative (Negative) Urine Urobilinogen Negative (Negative) Ur Leukocyte Esterase Trace H (Negative) Urine WBC (Auto) 0-5 (0-5) /hpf Urine RBC (Auto) 3-5 H (0-2) /hpf U Hyaline Cast (Auto) 0-2 (0-2) /lpf U Epithel Cells (Auto) 3-5 H (0-2) /hpf Urine Bacteria (Auto) None Seen (None Seen) Administered Medications Discontinued Medications Sodium Chloride (Nss) 1,000 mls @ 999 mls/hr IV .Q1H1M STA Stop: 01/15/24 18:27 Last Admin: 01/15/24 17:33 Dose: 999 mls/hr Documented By: RYAN Promethazine HCl (Phenergan) 12.5 mg in 50.5 mls @ 202 mls/hr IV NOW STA Stop: 01/15/24 17:41 Last Infusion: 01/15/24 18:10 Dose: Infused Documented By: Admin: 01/15/24 17:45 Dose: 202 mls/hr Documented By: RYAN Famotidine (Pepcid 20mg Iv Push) 20 mg in 5 mls @ 2.5 mls/min IV NOW STA Stop: 01/15/24 17:31 Last Admin: 01/15/24 17:39 Dose: 2.5 mls/min Documented By: RYAN Potassium Chloride (K Magnus / Wtr) 10 meq in 100 mls @ 100 mls/hr IV ONE ONE Stop: 01/15/24 19:13 Last Infusion: 01/15/24 19:18 Dose: 50 mls/hr Documented By: Admin: 01/15/24 18:54 Dose: 100 mls/hr Documented By: RYAN Ondansetron HCl (Ondansetron Inj 2 Mg/Ml 2 Ml Vial) 4 mg IV NOW STA Stop: 01/15/24 17:28 Last Admin: 01/15/24 17:35 Dose: Not Given Documented By: Imaging Data Radiologist's Impression: Chest/Abdomen X-ray 01/15/24 17:39 PA CHEST WITH ABDOMINAL SERIES CLINICAL HISTORY: Nausea and vomiting. FINDINGS: A PA chest radiograph is compared to study dated 06/14/2022. The cardiomediastinal silhouette is unremarkable. The lungs and pleural spaces are clear. No pneumothorax is seen. The bony thorax is grossly intact. Supine and erect abdominal radiographs are compared to abdominal radiograph and CT dated 01/14/2024. There is a nonobstructed abdominal bowel gas pattern. No evidence of intraperitoneal free air is seen. There are no abnormal abdominal calcifications. An intrauterine device is seen in the pelvis. The lumbosacral spine and bony pelvis appear intact. IMPRESSION: 1. No active disease in the chest. 2. Nonobstructed abdominal bowel gas pattern. ACT 112: Negative or not required by law. Electronically signed by: Bertram Solorzano M.D. 01/15/2024 7:19 PM Discharge Plan Visit Data Chief Complaint: Vomiting Stated Complaint: VOMITING, CHEST PAIN, ABD PAIN ED Provider: Bertram Valdes Discharge Problem: Vomiting, Failure of outpatient treatment, Hypokalemia, Dysrhythmia, Prolonged QT interval Patient Disposition: Admitted As Inpatient Condition: Fair Forms Stand Alone Forms: [employer] Prescriptions Prescriptions: No Action albuterol sulfate 90 mcg/actuation Hfa Aerosol Inhaler 2 puff INHALATION DIRECTED PRN (Reason: Shortness Of Breath Or Wheezing) Mirena 21 mcg/24 hours (8 yrs) 52 mg Intrauterine Device 21 mcg INTRAUTERINE CONTINOUS Nausea Medication 1 tab PO DIRECTED PRN (Reason: N/V) Rx Instructions: Per pt she thinks the medication starts with a D. No fill history for the medication. She said it wasn't Zofran Referrals Referrals: PCP,NO [Primary Care Provider] - Discharge Problem: Vomiting Qualifiers: Vomiting type: unspecified Nausea presence: with nausea Qualified Code(s): R 11.2 - Nausea with vomiting, unspecified Dysrhythmia Qualifiers: Arrhythmia type: unspecified cardiac arrhythmia Qualified Code(s): I49.9 - Cardiac arrhythmia, unspecified
[2024-01-15 17:48] LABS: Basophils # (auto) 0.04 K/uL (0.00-0.20); Basophils % (auto) 0.4 %; Eosinophils # (auto) 0.01 K/uL (0.00-0.50); Eosinophils % (auto) 0.1 %; Hematocrit (blood only) 48.1 % (37.0-47.0); Hemoglobin 16.5 g/dl (12.0-16.0); Immature Granulocytes # (auto) 0.03 K/uL (0.01-0.20); Immature Granulocytes % (auto) 0.3 %; Lymphocytes # (auto) 2.53 K/uL (1.20-3.40); Lymphocytes % (auto) 27.7 %; Mean Corpuscular Hemoglobin 30.2 pg (25.0-34.0); Mean Corpuscular Hgb Conc 34.3 g/dL (32.0-36.0); Mean Corpuscular Volume 88.1 fL (80.0-100.0); Mean Platelet Volume 10.5 fL (9.4-12.4); Monocytes % (auto) 6.6 %; Neutrophils # (auto) 5.94 K/uL (1.40-6.50); Neutrophils % (auto) 64.9 %; Platelet Count 244 K/uL (130-400); RDW Coefficient of Variation 11.5 % (11.5-14.5); RDW Standard Deviation 36.7 fL (36.4-46.3); Red Blood Count 5.46 M/uL (4.20-5.40); White Blood Count 9.15 K/ul (4.8-10.8)
[2024-01-15 18:05] LABS: Pregnancy Test, Serum Negative (Negative)
[2024-01-15 18:08] LABS: Albumin Globulin Ratio 1.6 (0.9-2); Albumin Level 5.1 gm/dl (3.4-5.0); Bilirubin,Total 1.3 mg/dl (0.2-1.0); Calcium 10.1 mg/dl (8.6-10.3); Creatinine Clr Calc Pharmacy 91.1 ml/min; Est GFR (African American) 142.2 ml/min; Est GFR (Non-African American) 122.7 ml/min; Globulin 3.2 gm/dl (2.5-4.0); Magnesium 1.9 mg/dl (1.7-2.4); Potassium 3.1 mmol/L (3.5-5.1); Total Protein 8.3 gm/dl (6.0-8.3)
[2024-01-15 18:20] LABS: Thyroid Stimulating Hormone 1.137 uIu/ml (0.300-4.500)
[2024-01-15] MEDS: POTASSIUM CHLORIDE / WTR 10 MEQ/100 ML PLCT IV ONE (18:54)
--- NOTE | 2024-01-15 19:20 | XRay Report ---
PA CHEST WITH ABDOMINAL SERIES CLINICAL HISTORY: Nausea and vomiting. FINDINGS: A PA chest radiograph is compared to study dated 06/14/2022. The cardiomediastinal silhouette is unrem arkable. The lungs and pleural spaces are clear. No pneumothorax is seen. The bony thorax is grossly intact. Supine and erect abdominal radiographs are compared to abdominal radiograph and CT dated 01/14/2024. T here is a nonobstructed abdominal bowel gas pattern. No evidence of intraperitoneal free air is seen. There are no abnormal abdominal calcifications. An intrauterine device is seen in the pelvis. The ryanne mbosacral spine and bony pelvis appear intact. IMPRESSION: 1. No active disease in the chest. 2. Nonobstructed abdominal bowel gas pattern. ACT 112: Negative or not required by law. Electronically signed by: Bertram Solorzano M.D. 01/15/2024 7:19 PM
[2024-01-15 19:33] LABS: Appearance Urine Clear (Clear); Bacteria Urine Automated None Seen (None Seen); Bilirubin Urine Negative (Negative); Blood Urine Negative (Negative); Cast Urine Automated 0-2 /lpf (0-2); Color Urine Yellow; Glucose Urine UA Negative (Negative); Ketones Urine 1+ (Negative); Leukocyte Esterase Urine Trace (Negative); Nitrite Urine Negative (Negative); Protein Urine Negative (Negative); Specific Gravity Urine 1.009 (1.000-1.030); Urobilinogen Urine Negative (Negative); WBC Urine Automated 0-5 /hpf (0-5); pH Urine 7.5 (4.5-7.5)
[2024-01-15 20:00] LABS: Amphetamines+Metham, Urine Neg (Neg); Barbiturates, Urine Neg (Neg); Benzodiazepine, Urine Neg (Neg); Cocaine, Urine Neg (Neg); Fentanyl, Urine Neg (Neg); MDMA (Ecstacy), Urine Neg (Neg); Marijuana, Urine Pos (Neg); Methadone, Urine Neg (Neg); Opiate, Urine Neg (Neg); Phencyclidine, Urine Neg (Neg)
--- NOTE | 2024-01-15 20:11 | History & Physical Report ---
Date of Service January 15, 2024 Assessment & Plan (1) Nausea & vomiting: (2) Colitis: (3) Bradycardia: (4) Hypokalemia: (5) Marijuana user: (6) Failure of outpatient treatment: (7) Elevated bilirubin: Plan Intractable nausea and vomiting/nonspecific colitis- Placed on full liquid diet, but likely will not start till the morning From the ED received the following: Normal saline 2 L, Zofran 4 mg IV, Phenergan 12.5 mg IV, famotidine 20 mg IV, and potassium chloride 10 mEq IV Admit on Zofran 4 mg IV every 6 hours as needed Pantoprazole 40 mg IV now and every morning Acetaminophen 650 mg by mouth every 6 hours as needed for mild pain or fever Levsin 0.125 mg sublingual every 4 hours as needed abdominal cramping Hypokalemia/dehydration- Potassium 3.1 on admission Status post 2 L normal saline from the ED NSS + KCl 20 mill equivalents at 150 mL/h x 2 L Recheck laboratories in the a.m. Increased troponin/Bradycardia- The patient will be admitted to telemetry for serial cardiac enzymes, serial EKG's, cardiac rhythm monitoring and a 2-D echocardiogram with Dopplers. Troponin added to the ED labs was 1042.7 Add respiratory BioFire testing, tick borne studies, ESR and LEO to ED labs Potassium 3.1, will be corrected IV Check BMP and magnesium levels in the a.m. 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 UDS was otherwise negative History of Present Illness Chief Complaint: The patient presents to the emergency department with 3 days of generalized abdominal pain, nausea and vomiting. She was seen at the emergency department on 01/13, and had a workup including CT scan of abdomen pelvis which suggested a possible mild nonspecific colitis. At that time she was discharged on dicyclomine for abdominal cramping and spasming. Her symptoms however have persisted, and she presents to the ED again this evening. Primary Care Provider: NO PCP The patient is a 23-year-old female with a past medical history including previous admission for nausea and vomiting, tobacco and vaping use, use of marijuana. She presents to the emergency department symptoms as noted above. In the emergency department she was noted to be bradycardic with heart rate into the low 50s, and laboratories were significant for a potassium of 3.1. She was given hold medications including Zofran and Phenergan, but with persistent symptoms, she was referred for evaluation for admission Allergies Allergy/AdvReac Type Severity Reaction Status Date / Time No Known Allergies Allergy Verified 03/09/23 00:50 Home Medications Medication Instructions Recorded Confirmed Type albuterol sulfate 90 mcg/actuation 2 puff inhalation DIRECTED PRN 06/15/22 01/15/24 History aerosol inhaler Shortness Of Breath Or Wheezing levonorgestrel 21 mcg/24 hr (up to 21 mcg intrauterine CONTINOUS 03/09/23 01/15/24 History 8 years) 52 mg intrauterine device (Mirena) Nausea Medication 1 tab PO DIRECTED PRN N/V 01/15/24 01/15/24 History Past Med/Surg History Problem List (Updated 01/15/24 @ 20:45 by Dennis Driscoll MD) Colitis Elevated bilirubin Marijuana user Nausea & vomiting Bradycardia Prolonged QT interval (Acute) Dysrhythmia (Acute) Hypokalemia (Acute) Failure of outpatient treatment (Acute) Vomiting (Acute) Vomiting and diarrhea (Acute) Abdominal pain (Acute) Laceration of left little finger w/o foreign body w/o damage to nail (Acute) Medical History Malpositioned IUD Abdominal pain Elevated bilirubin Gilbert's syndrome UTI (urinary tract infection) Marijuana user Nausea & vomiting No pertinent past medical history No pertinent family history Surgical History No pertinent past surgical history Social History Smoking Status: Never smoker Tobacco Type: E-cigarettes / Vaping Second Hand Exposure: No; Do You Dip or Chew Tobacco: No; Tobacco Cessation Education Requested by Patient: No Hx Alcohol Use: No Hx Substance Use: Yes Last Used Substance: Days (ago) Last Used Substance Other:: marijuana use on tuesday06/12/22 Preferred Language: Irish Communication Ability: Effective Director Women Required: No Beliefs That Will Affect Care: None Current Living Situation: Other Current Living Situation Comment: room mate Other Information That Helps Us Care for You: No Feels Safe at Home: Yes Safety Concerns: Feels Safe At This Time Assistive Devices: Glasses Review of Systems Review of Systems: The patient denies chest pain, palpitations, shortness of breath, dyspnea on exertion, cough, lower extremity swelling, sore throat, fevers, chills, sweats, blood in urine or stool, dysuria, urinary frequency or urgency, lightheadedness, dizziness, headache, loss of consciousness, rash, abnormal bruising or bleeding, imbalance, focal weakness, numbness or tingling in arms or legs, generalized arthralgias or myalgias, back or neck pain, or night sweats. The review of systems is otherwise negative other than for that already noted above, and at least 10 systems have been reviewed. Physical Exam Physical Exam: The patient is awake, alert and oriented 3, well developed and well nourished, normocephalic and atraumatic, lying in bed and in no acute distress. HEENT--PERRL, EOMI, mucous membranes and oropharynx mildly dry. Neck--supple. No JVD. No bruits. Thyroid normal, trachea midline, no adenopathy. Heart--bradycardic, occasional premature contractions. No murmurs, rubs or gallops. Lungs--clear bilaterally, no respiratory distress, no accessory muscle use. Abdomen--normal bowel sounds and soft. Nontender. Nondistended, no hernias or masses, no organomegaly. Extremities--no cyanosis or clubbing. No edema. There are good distal pulses b/l. Dermatologic--normal skin turgor, normal color, no abnormal lymph nodes, no rash. Neurologic--cranial nerves II through XII grossly intact. Rheumatologic--normal range of motion. Psychiatric--normal affect. Results & Data Results & Data Vital Signs (Past 12 Hours) Vital Signs Temp Pulse Pulse Resp BP BP Pulse Ox 01/15/24 17:55 75 01/15/24 17:28 67 17 133/101 H 99 01/15/24 17:17 36.1 C L 71 20 131/98 98 O2 Del Method 01/15/24 17:55 01/15/24 17:28 Room Air 01/15/24 17:17 Room Air Laboratory Results Laboratory Results WBC 9.15 K/ul (4.8-10.8) 01/15/24 17:34 RBC 5.46 M/uL (4.20-5.40) H 01/15/24 17:34 Hgb 16.5 g/dl (12.0-16.0) H 01/15/24 17:34 Hct 48.1 % (37.0-47.0) H 01/15/24 17:34 MCV 88.1 fL (80.0-100.0) 01/15/24 17:34 MCH 30.2 pg (25.0-34.0) 01/15/24 17:34 MCHC 34.3 g/dL (32.0-36.0) 01/15/24 17:34 RDW Std Deviation 36.7 fL (36.4-46.3) 01/15/24 17:34 RDW Coeff of Lavelle 11.5 % (11.5-14.5) 01/15/24 17:34 Plt Count 244 K/uL (130-400) 01/15/24 17:34 MPV 10.5 fL (9.4-12.4) 01/15/24 17:34 Immature Gran % (Auto) 0.3 % 01/15/24 17:34 Neut % (Auto) 64.9 % 01/15/24 17:34 Lymph % (Auto) 27.7 % 01/15/24 17:34 [place] % (Auto) 6.6 % 01/15/24 17:34 Eos % (Auto) 0.1 % 01/15/24 17:34 Baso % (Auto) 0.4 % 01/15/24 17:34 Neut # (Auto) 5.94 K/uL (1.40-6.50) 01/15/24 17:34 Lymph # (Auto) 2.53 K/uL (1.20-3.40) 01/15/24 17:34 [place] # (Auto) 0.60 K/uL (0.11-0.59) H 01/15/24 17:34 Eos # (Auto) 0.01 K/uL (0.00-0.50) 01/15/24 17:34 Baso # (Auto) 0.04 K/uL (0.00-0.20) 01/15/24 17:34 Immature Gran # (Auto) 0.03 K/uL (0.01-0.20) 01/15/24 17:34 Sodium 137 mmol/L (136-145) 01/15/24 17:34 Potassium 3.1 mmol/L (3.5-5.1) L D 01/15/24 17:34 Chloride 100 mmol/L (98-107) 01/15/24 17:34 Carbon Dioxide 27 mmol/L (21-32) 01/15/24 17:34 Anion Gap 10 (3-11) 01/15/24 17:34 BUN 9 mg/dl (6-23) 01/15/24 17:34 Creatinine 0.69 mg/dl (0.6-1.2) 01/15/24 17:34 Est Cr Clr Drug Dosing 91.1 ml/min 01/15/24 17:34 Est GFR ( Amer) 142.2 ml/min 01/15/24 17:34 Est GFR (Non-Af Amer) 122.7 ml/min 01/15/24 17:34 BUN/Creatinine Ratio 13.0 (10-20) 01/15/24 17:34 Glucose 104 mg/dl (70-99(Fasting)) H 01/15/24 17:34 Calcium 10.1 mg/dl (8.6-10.3) 01/15/24 17:34 Magnesium 1.9 mg/dl (1.7-2.4) 01/15/24 17:34 Total Bilirubin 1.3 mg/dl (0.2-1.0) H D 01/15/24 17:34 AST 26 U/L (13-39) 01/15/24 17:34 ALT 14 U/L (7-52) 01/15/24 17:34 Alkaline Phosphatase 65 U/L (34-104) 01/15/24 17:34 Total Protein 8.3 gm/dl (6.0-8.3) 01/15/24 17:34 Albumin 5.1 gm/dl (3.4-5.0) H 01/15/24 17:34 Globulin 3.2 gm/dl (2.5-4.0) 01/15/24 17:34 Albumin/Globulin Ratio 1.6 (0.9-2) 01/15/24 17:34 Lipase 15 U/L (11-82) 01/15/24 17:34 TSH 1.137 uIu/ml (0.300-4.500) 01/15/24 17:34 HCG, Qual Negative (Negative) 01/15/24 17:34 Urine Color Yellow 01/15/24 19:08 Urine Appearance Clear (Clear) 01/15/24 19:08 Urine pH 7.5 (4.5-7.5) 01/15/24 19:08 Ur Specific [place] 1.009 (1.000-1.030) 01/15/24 19:08 Urine Protein Negative (Negative) 01/15/24 19:08 Urine Glucose (UA) Negative (Negative) 01/15/24 19:08 Urine Ketones 1+ (Negative) H 01/15/24 19:08 Urine Blood Negative (Negative) 01/15/24 19:08 Urine Nitrite Negative (Negative) 01/15/24 19:08 Urine Bilirubin Negative (Negative) 01/15/24 19:08 Urine Urobilinogen Negative (Negative) 01/15/24 19:08 Ur Leukocyte Esterase Trace (Negative) H 01/15/24 19:08 Urine WBC (Auto) 0-5 /hpf (0-5) 01/15/24 19:08 Urine RBC (Auto) 3-5 /hpf (0-2) H 01/15/24 19:08 U Hyaline Cast (Auto) 0-2 /lpf (0-2) 01/15/24 19:08 U Epithel Cells (Auto) 3-5 /hpf (0-2) H 01/15/24 19:08 Urine Bacteria (Auto) None Seen (None Seen) 01/15/24 19:08 Urine Opiates Screen Neg (Neg) 01/15/24 19:08 Ur Methadone, Qual Neg (Neg) 01/15/24 19:08 Urine Fentanyl Screen Neg (Neg) 01/15/24 19:08 Urine Barbiturates Neg (Neg) 01/15/24 19:08 Ur Phencyclidine (PCP) Neg (Neg) 01/15/24 19:08 U Amphetamin/Meth Scrn Neg (Neg) 01/15/24 19:08 MDMA (Ecstasy) Screen Neg (Neg) 01/15/24 19:08 U Benzodiazepines Scrn Neg (Neg) 01/15/24 19:08 Ur Cocaine Metabolite Neg (Neg) 01/15/24 19:08 U Marijuana (THC) Screen Pos (Neg) H 01/15/24 19:08 Impressions Chest/Abdomen X-ray 01/15/24 17:39 PA CHEST WITH ABDOMINAL SERIES CLINICAL HISTORY: Nausea and vomiting. FINDINGS: A PA chest radiograph is compared to study dated 06/14/2022. The cardiomediastinal silhouette is unremarkable. The lungs and pleural spaces are clear. No pneumothorax is seen. The bony thorax is grossly intact. Supine and erect abdominal radiographs are compared to abdominal radiograph and CT dated 01/14/2024. There is a nonobstructed abdominal bowel gas pattern. No evidence of intraperitoneal free air is seen. There are no abnormal abdominal calcifications. An intrauterine device is seen in the pelvis. The lumbosacral spine and bony pelvis appear intact. IMPRESSION: 1. No active disease in the chest. 2. Nonobstructed abdominal bowel gas pattern. ACT 112: Negative or not required by law. Electronically signed by: Bertram Solorzano M.D. 01/15/2024 7:19 PM Code Status & VTE Plan Code Status Full code PG Care Time/CCT Total # of Minutes Spent Total Time Spent with Patient: Total time spent is greater than 50% in coordination of care (as documented) at patient's floor/unit and/or counseling patient: Coding Level of Care Code 41992 INT INP/OBS CARE 3/75MIN Diagnoses Nausea & vomiting R11.2 Colitis K52.9 Bradycardia R00.1 Hypokalemia E87.6 Marijuana user F12.90 Failure of outpatient treatment Z78.9 Elevated bilirubin R17
[2024-01-15] MEDS: SODIUM CHLORIDE 0.9% 1,000 ML IV ONE (20:27)
[2024-01-15] MEDS: PANTOprazole 40 MG in SYRINGE 0 ML IV ONE (20:52)
[2024-01-15] MEDS ORDERED: ALBUTEROL HFA 8 GM INHALER INH PRN (21:27)
[2024-01-15] MEDS: ONDANSETRON INJ 2 MG/ML 2 ML VIAL IV PRN (21:28)
[2024-01-15] MEDS: NSS + 20MEQ KCL 20 MEQ/1,000 ML BAG IV SCH (21:28)
[2024-01-15 21:45] LABS: Troponin I High Sensitivity 1042.7 pg/ml (0-14)
[2024-01-15] MEDS: ACETAMINOPHEN 1,000 MG/100 ML VIAL IV STA (22:09)
[2024-01-15 23:18] LABS: Adenovirus PCR Not Detected (NotDetected); Bordetella parapertussis PCR Not Detected (NotDetected); Bordetella pertussis PCR Not Detected (NotDetected); Chlamydia pneumoniae PCR Not Detected (NotDetected); Coronavirus 229E PCR Not Detected (NotDetected); Coronavirus CoV-2 (COVID19)PCR Not Detected (NotDetected); Coronavirus HKU1 PCR Not Detected (NotDetected); Coronavirus NL63 PCR Not Detected (NotDetected); Coronavirus OC43PCR Not Detected (NotDetected); Human Metapneumovirus PCR Not Detected (NotDetected); Influenza A PCR Not Detected (NotDetected); Influenza B PCR Not Detected (NotDetected); Mycoplasma pneumoniae PCR Not Detected (NotDetected); Parainfluenza Virus 1 PCR Not Detected (NotDetected); Parainfluenza Virus 2 PCR Not Detected (NotDetected); Parainfluenza Virus 3 PCR Not Detected (NotDetected); Parainfluenza Virus 4 PCR Not Detected (NotDetected); Respiratory Syncytial VirusPCR Not Detected (NotDetected); Rhinovirus/Enterovirus PCR Not Detected (NotDetected)
[2024-01-16] MEDS: ONDANSETRON INJ 2 MG/ML 2 ML VIAL IV STA (03:13)
[2024-01-16] MEDS: PROCHLORPERAZINE 5 MG in SYRINGE 4 ML IV ONE (05:46)
[2024-01-16 07:28] LABS: Basophils # (auto) 0.03 K/uL (0.00-0.20); Basophils % (auto) 0.3 %; Eosinophils # (auto) 0.01 K/uL (0.00-0.50); Eosinophils % (auto) 0.1 %; Hematocrit (blood only) 37.2 % (37.0-47.0); Hemoglobin 13.3 g/dl (12.0-16.0); Immature Granulocytes # (auto) 0.02 K/uL (0.01-0.20); Immature Granulocytes % (auto) 0.2 %; Lymphocytes # (auto) 2.43 K/uL (1.20-3.40); Lymphocytes % (auto) 26.9 %; Mean Corpuscular Hemoglobin 30.9 pg (25.0-34.0); Mean Corpuscular Hgb Conc 35.8 g/dL (32.0-36.0); Mean Corpuscular Volume 86.5 fL (80.0-100.0); Mean Platelet Volume 10.2 fL (9.4-12.4); Monocytes % (auto) 8.8 %; Neutrophils # (auto) 5.76 K/uL (1.40-6.50); Neutrophils % (auto) 63.7 %; Platelet Count 199 K/uL (130-400); RDW Coefficient of Variation 11.2 % (11.5-14.5); RDW Standard Deviation 35.4 fL (36.4-46.3); White Blood Count 9.05 K/ul (4.8-10.8)
[2024-01-16 08:14] LABS: Albumin Level 4.1 gm/dl (3.4-5.0); BUN Creatinine Ratio 12.1 (10-20); Bilirubin,Total 1.4 mg/dl (0.2-1.0); Calcium 8.9 mg/dl (8.6-10.3); Creatinine Clr Calc Pharmacy 95.2 ml/min; Est GFR (African American) 144.3 ml/min; Est GFR (Non-African American) 124.5 ml/min; Globulin 2.1 gm/dl (2.5-4.0); Magnesium 1.7 mg/dl (1.7-2.4); Potassium 3.7 mmol/L (3.5-5.1); Total Protein 6.2 gm/dl (6.0-8.3); Troponin I High Sensitivity 619.2 pg/ml (0-14)
--- NOTE | 2024-01-16 08:42 | Cardiology Consultation ---
<Statement entered by Brittany Fallon, DO - 01/18/24 08:34> Reviewed history, ECG labs as well as read admission ECHO. await further testing, recheck ECHO Date of Consultation January 16, 2024 Assessment & Plan (1) Myocarditis: (2) Prolonged QT interval: (3) Bradycardia: Plan Ms. Peña's previous EKGs from the ED were reviewed and were markedly abnormal with her going in and out of a junctional rhythm with PACs and a prolonged QT and peaked T waves. She is having persistent chest heaviness and a significantly elevated troponin that peaked at 1100 and is trending dwon. Her presentation is most consistent with viral myocarditis. Her Biofire panel was normal. I will have her start colchicine bid. She is already on pantoprazole which will help protect her stomach. She was cautioned that once discharged she will need to be cleared by cardiology before re-engaging in exercise. Her heart rate is too slow for beta blockers. No NSVT or PVCs on her monitor. Her EKG has normalized and demonstrated SB with heart rate in the 50s today. Her echo was reassuring with normal LVF. She did have mild to moderate mitral valve regurgitation which we could re-evaluate in the future with follow up echo in 6-12 months. Her potassium was appropriately repleated. History of Present Illness Attending Physician: Abdiel Eric MD History of Present Illness Ms. Peña presented to the emergency department last night after vomiting and abdominal pain since . She does have chest heaviness that is persistent and unchanged by position or exertion. No shortness of breath. No palpitations. She is sinus bradycardia on the monitor. EKG without ischemic changes or QT prolongation. 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[employer], in a relationship Allergies Allergy/AdvReac Type Severity Reaction Status Date / Time No Known Allergies Allergy Verified 03/09/23 00:50 Home Medications Medication Instructions Recorded Confirmed Type albuterol sulfate 90 mcg/actuation 2 puff inhalation DIRECTED PRN 06/15/22 01/15/24 History aerosol inhaler Shortness Of Breath Or Wheezing levonorgestrel 21 mcg/24 hr (up to 21 mcg intrauterine CONTINOUS 03/09/23 01/15/24 History 8 years) 52 mg intrauterine device (Mirena) Nausea Medication 1 tab PO DIRECTED PRN N/V 01/15/24 01/15/24 History Patient History Medical History Malpositioned IUD Abdominal pain Gilbert's syndrome UTI (urinary tract infection) No pertinent past medical history No pertinent family history Surgical History No pertinent past surgical history Social History Smoking Status: Never smoker Tobacco Type: E-cigarettes / Vaping Second Hand Exposure: No; Do You Dip or Chew Tobacco: No; Hx Alcohol Use: No Hx Substance Use: Yes Last Used Substance: Days (ago) Last Used Substance Other:: marijuana use on tuesday06/12/22 Preferred Language: Tanzanian Communication Ability: Effective Fork Assembler Required: No Beliefs That Will Affect Care: None Current Living Situation: Other Current Living Situation Comment: room mate Feels Safe at Home: Yes Assistive Devices: Glasses Review of Systems Review of Systems: All systems reviewed & are unremarkable except as noted in HPI & below Physical Exam Constitutional: WD/WN, vitals as above Respiratory: normal respiratory effort, lungs clear to auscultation Cardiovascular: RRR, no murmur, no edema Skin: no rashes, warm and dry Neurologic: moves all extremities and awake Psychiatric: A+Ox3, euthymic affect Results & Data Vital Signs (Past 12 Hours) Vital Signs Temp Pulse Pulse Resp BP BP Pulse Ox 01/16/24 08:07 36.8 C 54 L 20 155/95 H 99 01/16/24 07:53 88 01/16/24 03:10 36.6 C 52 L 19 154/96 H 99 01/15/24 23:15 37.7 C H 85 18 149/89 H 99 01/15/24 22:08 59 L 01/15/24 21:35 38.2 C H 63 16 145/99 H 97 01/15/24 21:30 01/15/24 21:07 60 18 133/101 H 100 O2 Del Method 01/16/24 08:07 Room Air 01/16/24 07:53 01/16/24 03:10 Room Air 01/15/24 23:15 Room Air 01/15/24 22:08 01/15/24 21:35 Room Air 01/15/24 21:30 Room Air 01/15/24 21:07 Room Air
--- NOTE | 2024-01-16 09:02 | Electrocardiogram Report ---
Test Reason : Blood Pressure : */* mmHG Vent. Rate : 57 BPM Atrial Rate : 57 BPM P-R Int : 124 ms QRS Dur : 80 ms QT Int : 488 ms P-R-T Axes : 69 60 48 degrees QTcB Int : 474 ms Sinus bradycardia with sinus arrhythmia Borderline QT interval Otherwise normal ECG When compared with ECG of 15-Jan-2024 19:01, (unconfirmed) Sinus rhythm has replaced Junctional rhythm Left anterior fascicular block is no longer Present Incomplete right bundle branch block is no longer Present Confirmed by Brittany Fallon (Alina) on 01/16/2024 9:02:20 AM Referred By: REFERRED SELF Confirmed By: Brittany Fallon
[2024-01-16] MEDS: FAMOTIDINE 20MG IV PUSH 20 MG/5 ML SYR IV STA (09:48)
[2024-01-16 11:26] LABS: Troponin I High Sensitivity 559.3 pg/ml (0-14)
[2024-01-16] MEDS: PANTOprazole 40 MG in SYRINGE 0 ML IV SCH (11:51)
--- NOTE | 2024-01-16 13:12 | Hospitalist Progress Note ---
Date of Service January 16, 2024 Assessment & Plan (1) Nausea & vomiting: Plan: Placed on full liquid diet, but no real appetite to determine tolerance From the ED received the following: Normal saline 2 L, Zofran 4 mg IV, Phenergan 12.5 mg IV, famotidine 20 mg IV, and potassium chloride 10 mEq IV Zofran 4 mg IV every 6 hours as needed Pantoprazole 40 mg IV every morning Acetaminophen 650 mg by mouth every 6 hours as needed for mild pain or fever Levsin 0.125 mg sublingual every 4 hours as needed abdominal cramping (2) Myocarditis: Plan: Admitted to telemetry for serial cardiac enzymes, serial EKG's, cardiac rhythm monitoring and a 2-D echocardiogram with Dopplers. - Elevated troponin on admission, peaked at 1120 then downtrended - Respiratory bio fire negative, tickborne studies negative/pending, LEO pending, ESR WNL at 13 - EKG on admission markedly abnormal with PACs, prolonged QT, peaked T waves - EKG now normalized showing sinus bradycardia with HR in the 50s - Cardiology consulted > Presentation most consistent with viral myocarditis. > Start colchicine twice daily. Continue pantoprazole. > Will need to be cleared by cardiology before reengaging in exercise. > Echo is reassuring with normal LVEF. Mild to moderate mitral valve regurgitation was noted, which can be reevaluated in the future with follow-up echo in 6-12 months. - Repeat echo ordered by cardiology scheduled for 10/1 AM (3) Hypokalemia: Plan: Hypokalemia of 3.1 on admission, repleted and augmented appropriately (4) Marijuana user: Plan: Marijuana positive in the ED, which may be contributing to symptoms of nausea and vomiting. UDS was otherwise negative Plan Ordered IV Pepcid Ordered stool studies Diet: Full liquid VTE PPx: SCDs CODE STATUS: Full code Admission and Anticipated Discharge Date Admission Date: January 15, 2024 Supervising Physician Co-Signing Physician Notes Attending Attestation - Chart reviewed, care plan d/w VIOLETTA Meza. I agree w/ the daniel components of her documentation. +troponin - thought 2nd to viral myocarditis. Appreciate [facility] consultation & recs. Started on colchicine 0.6mg BID. Abdiel Eric MD Subjective Patient seen and evaluated bedside. She reports feeling very tired today she did not sleep well last night. She notes that the vomiting has resolved, though she still remains nauseous. She notes that the antiemetics do help alleviate her nausea. She does not have much of an appetite at this time. She reports some "chest heaviness" which is constant and does not change with activity or position. She denies chest pain, palpitations, shortness of breath, lightheadedness, or dizziness. She also reports epigastric and left lower quadrant abdominal tenderness. She reports that she has never experienced her current symptoms before. Physical Exam Physical Exam: General: No acute distress, nondiaphoretic, well-developed, well-nourished. Skin: The skin was without rashes, erythema, edema, or bruising. Cardiac: Regular rate and rhythm without murmurs gallops or rubs. Pulm: Clear to auscultation bilaterally without wheezes, rales or rhonchi. No respiratory distress. 98% on room air. Abdominal: Bowel sounds present. Soft, nondistended. Tenderness to palpation in epigastric region and left lower quadrant. Neuro: A&O x3. No focal neurological deficits. Results & Data Results & Data Vital Signs (Past 12 Hours) Vital Signs Temp Pulse Pulse Resp BP Pulse Ox O2 Del Method 01/16/24 10:51 98.6 F 85 18 135/89 98 Room Air 01/16/24 09:41 Room Air 01/16/24 08:07 98.2 F 54 L 20 155/95 H 99 Room Air 01/16/24 07:53 88 01/16/24 03:10 97.9 F 52 L 19 154/96 H 99 Room Air Laboratory Results Reviewed CBC Reviewed CMP Reviewed troponins Reviewed UA Reviewed tox screen Reviewed respiratory bio fire Diagnostic Findings Reviewed echocardiogram 01/15 Interpretation summary: The left ventricle is normal in size. There is normal left ventricular wall thickness. Left ventricular systolic function is normal. Left ventricular ejection fraction= 50-60%. There is a small area at the base of the LV septum which appears dyskinetic, this may represent membranous septum. There is mild to perhaps moderate mitral regurgitation. PG Care Time/CCT Total # of Minutes Spent Total Time Spent with Patient: Total time spent is greater than 50% in coordination of care (as documented) at patient's floor/unit and/or counseling patient: Coding Level of Care Code 41563 SUB INP/OBS CARE 3/50MIN Diagnoses Nausea & vomiting R11.2 Myocarditis I51.4 Hypokalemia E87.6 Marijuana user F12.90
--- NOTE | 2024-01-16 16:43 | Electrocardiogram Report ---
Test Reason : Blood Pressure : */* mmHG Vent. Rate : 65 BPM Atrial Rate : 65 BPM P-R Int : 122 ms QRS Dur : 74 ms QT Int : 532 ms P-R-T Axes : 74 68 61 degrees QTcB Int : 553 ms Sinus rhythm with Premature atrial complexes and AV dissociation secondary to a competing ventricula r rhythm Prolonged QT Abnormal ECG No previous ECGs available Confirmed by Damion Martin ([id number]) on 01/16/2024 4:42:28 PM Referred By: REFERRED SELF Confirmed By: Damion Martin
--- NOTE | 2024-01-16 16:44 | Electrocardiogram Report ---
Test Reason : Blood Pressure : */* mmHG Vent. Rate : 68 BPM Atrial Rate : 78 BPM P-R Int : * ms QRS Dur : 114 ms QT Int : 542 ms P-R-T Axes : * -48 78 degrees QTcB Int : 576 ms Sinus rhythm with AV dissociation Incomplete right bundle branch block Left anterior fascicular block Minimal voltage criteria for LVH, may be normal variant Prolonged QT Abnormal ECG Confirmed by Damion Martin ([id number]) on 01/16/2024 4:43:54 PM Referred By: REFERRED SELF Confirmed By: Damion Martin
[2024-01-16] MEDS: COLCHICINE 0.6 MG TAB PO SCH (19:37)
[2024-01-16] MEDS: HYOSCYAMINE SULFATE 0.125 MG TAB SL PRN (21:15)
[2024-01-17] MEDS: PROCHLORPERAZINE 10 MG in SYRINGE 8 ML IV ONE (03:54)
[2024-01-17 06:27] LABS: Basophils # (auto) 0.03 K/uL (0.00-0.20); Basophils % (auto) 0.4 %; Eosinophils # (auto) 0.03 K/uL (0.00-0.50); Eosinophils % (auto) 0.4 %; Hematocrit (blood only) 41.1 % (37.0-47.0); Hemoglobin 14.4 g/dl (12.0-16.0); Immature Granulocytes # (auto) 0.01 K/uL (0.01-0.20); Immature Granulocytes % (auto) 0.1 %; Lymphocytes # (auto) 2.44 K/uL (1.20-3.40); Mean Corpuscular Hemoglobin 30.5 pg (25.0-34.0); Mean Corpuscular Volume 87.1 fL (80.0-100.0); Mean Platelet Volume 10.5 fL (9.4-12.4); Monocytes % (auto) 7.6 %; Neutrophils # (auto) 4.75 K/uL (1.40-6.50); Neutrophils % (auto) 60.5 %; Platelet Count 206 K/uL (130-400); RDW Coefficient of Variation 11.1 % (11.5-14.5); RDW Standard Deviation 35.8 fL (36.4-46.3); Red Blood Count 4.72 M/uL (4.20-5.40); White Blood Count 7.86 K/ul (4.8-10.8)
[2024-01-17 06:55] LABS: Albumin Globulin Ratio 1.7 (0.9-2); Albumin Level 4.3 gm/dl (3.4-5.0); BUN Creatinine Ratio 12.7 (10-20); Bilirubin,Total 1.6 mg/dl (0.2-1.0); Calcium 9.4 mg/dl (8.6-10.3); Creatinine Clr Calc Pharmacy 88.5 ml/min; Est GFR (African American) 139.1 ml/min; Est GFR (Non-African American) 120.1 ml/min; Globulin 2.6 gm/dl (2.5-4.0); Magnesium 1.9 mg/dl (1.7-2.4); Potassium 3.6 mmol/L (3.5-5.1); Total Protein 6.9 gm/dl (6.0-8.3)
--- NOTE | 2024-01-17 07:59 | Hospitalist Progress Note ---
Date of Service January 17, 2024 Assessment & Plan (1) Nausea & vomiting: Plan: Presented to ED with nausea and vomiting since . CTAP on admission w/ colon w/ mildly thickened waled, ?mild nonspecific colitis. Of note, CTAP in Feb 2023 w/ mild enteritis. ?ever had GI outpt ref Resp biofire negative. From the ED received the following: Normal saline 2 L, Zofran 4 mg IV, Phenergan 12.5 mg IV, famotidine 20 mg IV, and potassium chloride 10 mEq IV Placed on full liquid diet, but no real appetite to determine tolerance + marijuana UDS, daily user. Antiemetics w/ Zofran prn. Ativan 0.5mg SL x 1 this morning and no further nausea this afternoon and wanting to advance diet Advanced to regular diet Trial capsacin cream as able/tolerated. Marijuana cessation recommended Continue Protonix IVP daily, pepcid 20mg PO BID added for GI proph. Has never had outpt GI follow up and will plan to arrange for EGD for eval. Denies ever having had blood in stool/melena/etc but likely benefit from screening EGD at least to ensure not having underlying issue/eosinophilic esophagitis or other? Patient agreeable to GI ref at discharge. Monitor n/v with advancement of diet. Colace BID added/monitor bowels Myocarditis also was reporting associated chest heaviness and found to have elevated troponin and findings consistent with a viral myocarditis and elevated troponin to peak 1120. EKG w/ peaked T waves, prolonged QT with PACs. EKG normalized on repeat but w/ sinus wei w/ HR 50s. Did have diarrhea last week/no recent vaccines. ?post viral myocarditis. Stool biofire ordered but not yet obtained Troponin 1042--> 1120--> 619--> 559.3. Cardiology consulted, ECHO w/ normal LVF, mild-moderate mitral valve regurgitation TSH wnl, Lyme negative. LEO pending. Repeat EKG w/ improvement Telemetry monitoring Started on colchicine BID Repeat ECHO for today, done but not yet read Continue GI prophylaxis (2) Myocarditis: Plan: Admitted to telemetry for serial cardiac enzymes, serial EKG's, cardiac rhythm monitoring and a 2-D echocardiogram with Dopplers. Trop as above peaked to 1120, most recently 559 Telemetry stable NSR Resp biofire negative, tickborne studies negative/pending. Normal ESR/CRP. LEO/EBV pending EKG on admission markedly abnormal with PACs, prolonged QT, peaked T waves EKG now normalized showing sinus bradycardia with HR in the 50s Cardiology consulted > Presentation most consistent with viral myocarditis. Started colchicine BID 01/15. Reassuring normal LVEF. ECHO noted mild-mod MR Repeat echo pending from this morning - done not yet read. 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 Needs repeat echo 6/12 months, outpt cards f/u Will need to be cleared by cardiology before reengaging in exercise. (3) Hypokalemia: Plan: Hypokalemia of 3.1 on admission, repleted and augmented appropriately. Likely 2nd to n/v on admission. Normal on AM labs and monitoring w/ advancement of diet (4) Marijuana user: Plan: Marijuana positive in the ED, which may be contributing to symptoms of nausea and vomiting. UDS was otherwise negative PPI/H2 for GI proph as above Encouraged cessation Plan Dispo: advancement of diet, continues on colchicine. stool biofire w/ next BM as able Possible dc 01/17 pending course overnight with advancement of diet. Will arrange for outpatient cardiology f/u as well as Zio monitor, also GI f/u for ongoing issues w/ n/v outside of marijuana use reported in the past. Admission and Anticipated Discharge Date Admission Date: January 15, 2024 Supervising Physician Co-Signing Physician Notes The patient was not seen by me. The chart was reviewed. Case discussed with VIOLETTA Mei. Agree with assessment and plan Subjective Evaluated around 12L45, significant other/boyfriend in room. Reports feeling ongoing pressure/discomfort, not much changed since admission. On colchicine, continued. No diarrhea (as reported diarrhea last , resolved by Tuesday). Discussed can be side effect from cholchicine to monitor. Denies moving her bowels since being here, does have + BS on exam and will add softener but avoid laxative as on colchicine and monitor. Discussed adding pepcid twice daily for GI proph. No further nausea, would like to advance diet. Discussed monitoring repeat ECHO and overnight for any issues. Did get ativan this morning, was sleepy. Does report fatigue. Discussed prior given and slept x 2 days but she reports that's when she came in and had been drinking. Will avoid further for now. Marijuana cessation encouraged. Physical Exam 2 Physical Exam: General: 23yo AA female resting in bed, boyfriend in room, NAD but fatigued appearing/just woke up HEENT: head atraumatic, normocephalic, mmm, trachea midline Resp: even/unlabored, on room air, no wheezing/rales CV: RRR, +faint systolic murmur to apex, no pitting edema/calf tenderness GI: +BS, soft, slight distension, no overt tenderness/guarding : no carr MSK/Neuro: nonfocal, not confused, answering questions appropriately Psych: AOx3, cooperative with exam Results & Data Results & Data Vital Signs (Past 12 Hours) Vital Signs Temp Pulse Pulse Resp BP Pulse Ox O2 Del Method 01/17/24 03:33 36.8 C 61 14 156/106 H 99 Room Air 01/16/24 22:46 37.3 C 61 16 154/99 H 100 Room Air Laboratory Results 01/17/24 05:51 01/17/24 05:51 PG Care Time/CCT Total # of Minutes Spent Total Time Spent with Patient: Total time spent is greater than 50% in coordination of care (as documented) at patient's floor/unit and/or counseling patient: Coding Level of Care Code 27012 SUB INP/OBS CARE 3/50MIN Diagnoses Nausea & vomiting R11.2 Myocarditis I51.4 Hypokalemia E87.6 Marijuana user F12.90
[2024-01-17] MEDS: LORazepam 0.5 MG TAB SL STA (08:00)
--- NOTE | 2024-01-17 08:47 | Cardiology Progress Note ---
<Statement entered by Brittany Fallon, DO - 01/18/24 08:35> Will review ECHO done Tuesday am. Possible DC in next 24 hours if remains stable and no further arrhythmias Date of Service January 17, 2024 Assessment & Plan (1) Myocarditis: (2) Prolonged QT interval: (3) Bradycardia: Plan Impression: 1. Viral myocarditis 2. HTN 3. Echo with normal LVF, mild to moderate mitral valve regurgitation. Ms. Peña's EKGs from the ED were markedly abnormal with her going in and out of a junctional rhythm with PACs and a prolonged QT and peaked T waves. She is having persistent chest heaviness and a significantly elevated troponin that peaked at 1100 and trended down. Her presentation is most consistent with viral myocarditis. Her Biofire panel was celestina, sed rate was normal, LEO screen is pending. She should continue colchicine bid. Continue pantoprazole to protect her stomach She was cautioned that once discharged she will need to be cleared by cardiology before re-engaging in exercise. Her heart rate is too slow for beta blockers. No NSVT or PVCs on her monitor. Her EKG has normalized and demonstrated SB with heart rate in the 50s today. Her echo was reassuring with normal LVF. She did have mild to moderate mitral valve regurgitation which we could re-evaluate in the future with follow up echo in 6-12 months. Her blood pressure has been elevated, likely secondary to pain. Her diastolic has been hovering around 100. It should be treated if over 110 mHg but thus far it has not gone that high. Admission and Anticipated Discharge Date Admission Date: January 15, 2024 Subjective Ms. Peña is very drowsy this morning as she had a dose of ativan. She continues to have chest pressure. No ectopy on the monitor. Review of Systems Review of Systems: All systems reviewed & are unremarkable except as noted in HPI & below Physical Exam Constitutional: WD/WN, vitals as above Respiratory: normal respiratory effort, lungs clear to auscultation Cardiovascular: RRR, no murmur, no edema Skin: no rashes, warm and dry Neurologic: moves all extremities and awake Psychiatric: A+Ox3, euthymic affect Results & Data Vital Signs (Past 12 Hours) Vital Signs Temp Pulse Pulse Resp BP Pulse Ox O2 Del Method 01/17/24 08:01 37.1 C 62 17 145/105 H 97 Room Air 01/17/24 03:33 36.8 C 61 14 156/106 H 99 Room Air 01/16/24 22:46 37.3 C 61 16 154/99 H 100 Room Air
--- NOTE | 2024-01-17 11:00 | Electrocardiogram Report ---
Test Reason : Blood Pressure : */* mmHG Vent. Rate : 56 BPM Atrial Rate : 56 BPM P-R Int : 118 ms QRS Dur : 74 ms QT Int : 462 ms P-R-T Axes : 71 70 65 degrees QTcB Int : 445 ms Sinus bradycardia Otherwise normal ECG When compared with ECG of 16-Jan-2024 08:11, No significant change was found Confirmed by Damion Martin ([id number] on 01/17/2024 10:59:45 AM Referred By: REFERRED SELF Confirmed By: Damion Martin
[2024-01-17] MEDS: CAPSAICIN CR 0.075% 60 GM TUBE EXT SCH (12:15)
[2024-01-17] MEDS: MAGNESIUM SULFATE / D5W 1 GM/100 ML BAG IV ONE (14:54)
[2024-01-17] MEDS: PROCHLORPERAZINE 5 MG in SYRINGE 4 ML IV PRN (14:55)
--- NOTE | 2024-01-17 14:55 | Gastrointestinal Consultation ---
Date of Consultation January 17, 2024 Assessment & Plan (1) Nausea & vomitin23 year old female admitted w/ suspected viral myocarditis w/ cyclical bouts of nausea/vomiting, abdominal pain. No report of hematemesis, coffee ground emesis, dysphagia, black/bloody stools or diarrhea. DDX discussed: concern for CVS vs cannabinoid hyperemesis syndrome vs biliary colic vs gastroparesis vs other. There is no acute indication for endoscopic evaluation. Given the viral cardiomyopathy recommend to optimize from a cardiac standpoint prior to elective endoscopic evaluation. OP follow up in GI clinic prior to scheduling EGD/Colonoscopy. Recommend THC/CBD product cessation. May consider a HIDA scan. Agree with IV PPI while admitted. Convert to PO PPI at discharge. May continue Pepcid as needed. Antiemetics NH. She does note that the Compazine is superior to Zofran. Continue IVF maintenance. Agree w/ trial of capsaicin cream. For refractory symptoms, consider a dose of Emend. I spent a total of 60 minutes on the date of service in review of patient's record, and previously obtained information in person and appropriate medical visit, discussion and education of plan, with patient and/or caregiver, placing orders for tests/referral/procedures as medically necessary and documentation of pertinent clinical information in patient's medical records for their visit today.Thank you for allowing us to participate in the care of this patient. Please call with any acute changes, questions or concerns. Please see addendum below with additional recommendation from my supervising physician. Supervising Physician Co-Signing Physician Notes I examined the patient and reviewed patient's chart , laboratory data and imaging studies. I agree with with assessment and plan of care as suggested by advanced practice provider. Recurrent vomiting, rule out cyclic vomiting, rule out marijuana related. Follow-up as an outpatient. History of Present Illness Reason for Consultation: recurrent n/v, never had EGD. ?EOE. +marijuana use Requesting Physician: Geovanny Sam MD Attending Physician: Geovanny Sam MD History of Present Illness 23 year old female without past medical history admitted w/ nausea/vomiting, abdominal pain and chest heaviness. EKG noted to be abnormal - evaluated by cardiology for bradycardia, prolonged QT interval and suspected viral myocarditis. GI was asked to evaluate for abdominal pain, nausea/vomiting. Pt was seen and evaluated, chart reviewed. She reports three near identical episodes of abd pain, nausea/vomiting over the last year. Suggests these episodes last between days/weeks. Reports starts with generalized abdominal discomfort she explains as an upset stomach. Typically passes a large bowel movements followed by bouts of nausea/vomiting. She suggests during these episodes she is not able to advance her diet and has a hard time maintaining any oral intake. Emesis is typically bile, but occasionally will see some food particles. No report of black or bloody emesis or stools. She denies heartburn, reflux, regurgitation, odynophagia, dysphagia. No diarrhea/constipation. She reports 5-10 lb weight loss during these episodes. No prior EGD/Colonoscopy No prior abdominal surgical history Denies family history of celiac disease, ulcerative colitis, crohn's disease. Denies family history of gastrointestinal malignancies. H&H 14.4/41.1 Tibli 1.6, AST 32, ALT 27, ALKP 56 Lipase 15 + Marijuana screen on UA + daily marijuana use + ETOH use + tobacco use CTAP 2023: Liver: The contrast-enhanced liver is normal in size, contour, and attenuation. Fatty infiltration is seen adjacent to the falciform ligament. There is no intrahepatic biliary ductal dilatation. The hepatic veins and portal veins are patent. Paravertebral edema is nonspecific and likely related to hydration status. Gallbladder: The gallbladder wall appears edematous. There is no convincing CT evidence of acute cholecystitis. Pancreas: Unremarkable. Bowel: There is no bowel obstruction. The colonic wall appears mildly thickened, which may be due to under distention. The appendix is well-visualized and normal. Allergies Allergy/AdvReac Type Severity Reaction Status Date / Time No Known Allergies Allergy Verified 03/09/23 00:50 Home Medications Medication Instructions Recorded Confirmed Type albuterol sulfate 90 mcg/actuation 2 puff inhalation DIRECTED PRN 06/15/22 01/15/24 History aerosol inhaler Shortness Of Breath Or Wheezing levonorgestrel 21 mcg/24 hr (up to 21 mcg intrauterine CONTINOUS 03/09/23 01/15/24 History 8 years) 52 mg intrauterine device (Mirena) Nausea Medication 1 tab PO DIRECTED PRN N/V 01/15/24 01/15/24 History Patient History Medical History Malpositioned IUD Abdominal pain Gilbert's syndrome UTI (urinary tract infection) No pertinent past medical history No pertinent family history Surgical History No pertinent past surgical history Social History Smoking Status: Never smoker Tobacco Type: E-cigarettes / Vaping Second Hand Exposure: No; Do You Dip or Chew Tobacco: No; Hx Alcohol Use: No Hx Substance Use: Yes Last Used Substance: Days (ago) Last Used Substance Other:: marijuana use on tuesday06/12/22 Preferred Language: Vietnamese Communication Ability: Effective 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 Physical Exam Constitutional: WD/WN, vitals as above Respiratory: normal respiratory effort, lungs clear to auscultation Cardiovascular: Rate/Rhythm: regular rate and regular rhythm Gastrointestinal (Abdomen): normal bowel sounds, soft, nontender, no hepatosplenomegaly Skin: no rashes, warm and dry Results & Data Vital Signs (Past 12 Hours) Vital Signs Temp Pulse Resp BP BP Pulse Ox O2 Del Method 01/17/24 11:13 36.8 C 87 17 141/87 H 96 Room Air 01/17/24 08:01 37.1 C 62 17 145/105 H 97 Room Air 01/17/24 03:33 36.8 C 61 14 156/106 H 99 Room Air Laboratory Results 01/17/24 Range/Units 05:51 WBC 7.86 (4.8-10.8) K/ul RBC 4.72 (4.20-5.40) M/uL Hgb 14.4 (12.0-16.0) g/dl Hct 41.1 (37.0-47.0) % MCV 87.1 (80.0-100.0) fL MCH 30.5 (25.0-34.0) pg MCHC 35.0 (32.0-36.0) g/dL RDW Std Deviation 35.8 L (36.4-46.3) fL RDW Coeff of Lavelle 11.1 L (11.5-14.5) % Plt Count 206 (130-400) K/uL MPV 10.5 (9.4-12.4) fL Immature Gran % (Auto) 0.1 % Neut % (Auto) 60.5 % Lymph % (Auto) 31.0 % [place] % (Auto) 7.6 % Eos % (Auto) 0.4 % Baso % (Auto) 0.4 % Neut # (Auto) 4.75 (1.40-6.50) K/uL Lymph # (Auto) 2.44 (1.20-3.40) K/uL [place] # (Auto) 0.60 H (0.11-0.59) K/uL Eos # (Auto) 0.03 (0.00-0.50) K/uL Baso # (Auto) 0.03 (0.00-0.20) K/uL Immature Gran # (Auto) 0.01 (0.01-0.20) K/uL Sodium 138 (136-145) mmol/L Potassium 3.6 (3.5-5.1) mmol/L Chloride 103 (98-107) mmol/L Carbon Dioxide 24 (21-32) mmol/L Anion Gap 11 (3-11) BUN 9 (6-23) mg/dl Creatinine 0.71 (0.6-1.2) mg/dl Est Cr Clr Drug Dosing 88.5 ml/min Est GFR ( Amer) 139.1 ml/min Est GFR (Non-Af Amer) 120.1 ml/min BUN/Creatinine Ratio 12.7 (10-20) Glucose 82 (70-99(Fasting)) mg/dl Calcium 9.4 (8.6-10.3) mg/dl Magnesium 1.9 (1.7-2.4) mg/dl Total Bilirubin 1.6 H (0.2-1.0) mg/dl AST 32 (13-39) U/L ALT 27 (7-52) U/L Alkaline Phosphatase 56 (34-104) U/L Total Protein 6.9 (6.0-8.3) gm/dl Albumin 4.3 (3.4-5.0) gm/dl Globulin 2.6 (2.5-4.0) gm/dl Albumin/Globulin Ratio 1.7 (0.9-2) PG Care Time/CCT Total # of Minutes Spent Total Time Spent with Patient: Total time spent is greater than 50% in coordination of care (as documented) at patient's floor/unit and/or counseling patient: Coding Level of Care Code 87568 IN/OBS CONSULT LVL 4,60M Diagnoses Nausea & vomiting R11.2
[2024-01-17 15:28] LABS: Anti Nuclear Antibody Screen NEGATIVE (NEGATIVE)
[2024-01-17 15:43] LABS: Appearance Urine Cloudy (Clear); Bacteria Urine Automated 1+ (None Seen); Bilirubin Urine Negative (Negative); Blood Urine Negative (Negative); Cast Urine Automated 0-2 /lpf (0-2); Color Urine Yellow; Glucose Urine UA Negative (Negative); Ketones Urine 3+ (Negative); Leukocyte Esterase Urine 1+ (Negative); Nitrite Urine Negative (Negative); Protein Urine Trace (Negative); RBC Urine Automated 0-2 /hpf (0-2); Specific Gravity Urine 1.018 (1.000-1.030); Urobilinogen Urine Negative (Negative)
[2024-01-17] MEDS: FAMOTIDINE 20MG IV PUSH 20 MG/5 ML SYR IV ONE (16:15)
[2024-01-17] MEDS: cefTRIAXone SODIUM 1,000 MG/50 ML BAG IV SCH (17:19)
[2024-01-17] MEDS: NSS + 20MEQ KCL 20 MEQ/1,000 ML BAG IV SCH (18:05)
[2024-01-17] MEDS: FAMOTIDINE 20 MG TAB PO SCH (19:49)
[2024-01-18 06:19] LABS: Basophils # (auto) 0.03 K/uL (0.00-0.20); Basophils % (auto) 0.4 %; Eosinophils # (auto) 0.06 K/uL (0.00-0.50); Eosinophils % (auto) 0.9 %; Hematocrit (blood only) 39.3 % (37.0-47.0); Hemoglobin 14.1 g/dl (12.0-16.0); Immature Granulocytes # (auto) 0.01 K/uL (0.01-0.20); Immature Granulocytes % (auto) 0.1 %; Lymphocytes # (auto) 2.23 K/uL (1.20-3.40); Lymphocytes % (auto) 32.4 %; Mean Corpuscular Hemoglobin 30.7 pg (25.0-34.0); Mean Corpuscular Hgb Conc 35.9 g/dL (32.0-36.0); Mean Corpuscular Volume 85.4 fL (80.0-100.0); Monocytes # (auto) 0.67 K/uL (0.11-0.59); Monocytes % (auto) 9.7 %; Neutrophils # (auto) 3.88 K/uL (1.40-6.50); Neutrophils % (auto) 56.5 %; Platelet Count 210 K/uL (130-400); RDW Standard Deviation 34.3 fL (36.4-46.3); White Blood Count 6.88 K/ul (4.8-10.8)
[2024-01-18 06:32] LABS: Albumin Globulin Ratio 1.7 (0.9-2); Albumin Level 4.3 gm/dl (3.4-5.0); BUN Creatinine Ratio 10.7 (10-20); Bilirubin Direct 0.3 mg/dl (0-0.2); Bilirubin,Total 1.3 mg/dl (0.2-1.0); Calcium 9.1 mg/dl (8.6-10.3); Creatinine Clr Calc Pharmacy 74.8 ml/min; Est GFR (African American) 113.5 ml/min; Globulin 2.5 gm/dl (2.5-4.0); Magnesium 2.1 mg/dl (1.7-2.4); Potassium 3.8 mmol/L (3.5-5.1); Total Protein 6.8 gm/dl (6.0-8.3)
--- NOTE | 2024-01-18 07:53 | Hospitalist Progress Note ---
Date of Service January 18, 2024 Assessment & Plan (1) Nausea & vomiting: Plan: Presented to ED with nausea and vomiting since . CTAP on admission w/ colon w/ mildly thickened waled, ?mild nonspecific colitis. Of note, CTAP in Feb 2023 w/ mild enteritis. ?ever had GI outpt ref Resp biofire negative. From the ED received the following: Normal saline 2 L, Zofran 4 mg IV, Phenergan 12.5 mg IV, famotidine 20 mg IV, and potassium chloride 10 mEq IV. Liquid diet UDS + marijuana, daily user. Zofran --> Compazine as works better Topical capsacin not able to be tolerated Advanced diet to regular last evening 01/16 with increased n/v following apple juice and potatoes with some blood streak but nothing with emesis following orange juice this morning and discussed with GI provider/consult 01/16 given repeat episodes, now given reports blood in emesis but stable hgb/renal function and changes made: INCREASED PPI TO BID, ADDED CARAFATE. Outpt GI EGD to be arranged. IVF x 1L s/ LR @ 20k and will monitor ability this evening Continue compazine, diet backed to full liquid and will monitor PO intake/further vomiting if needing to resume IVF +flatus but no further BM since admission. Stool biofire ordered given diarrhea last week leading to viral myocarditis. Colace BID added and remains on cholchicine as below IF ONGOING ISSUES THIS EVENING/OVERNIGHT WILL PLAN FOR EMEND UA obtained last evening, foul smelling and prior admission w/ UTI contributing to n/v and CEFTRIAXONE IV STARTED/CONTINUED. Monitor final urine cx Of note, also with Mirena IUD in place/hx migraines and cycles and does occur at end of month/beginning of month time period and ?if contributing. Difficuly with alternatives with her hx migraines but can consider outpt f/u with NETWORK FIELD ENGINEER for ongoing discussions (2) Myocarditis: Plan: Myocarditis also was reporting associated chest heaviness and found to have elevated troponin and findings consistent with a viral myocarditis and elevated troponin to peak 1120. Admitted to telemetry for serial cardiac enzymes, serial EKG's, cardiac rhythm monitoring and a 2-D echocardiogram with Dopplers. EKG w/ peaked T waves, prolonged QT with PACs. EKG normalized on repeat but w/ sinus wei w/ HR 50s. Troponin 1042--> 1120--> 619--> 559.3. Did have diarrhea last week/no recent vaccines. ?post viral myocarditis. Respiratory biofire negative. Stool biofire ordered but not yet obtained TSH wnl, Lyme negative.. LEO pending/EBV pending Cardiology consulted STARTED/continues ON COLCHICINE 0.6mg BID. GI proph as above ECHO w/ normal LVF, mild-moderate mitral valve regurgitation Repeat ECHO w/ normal LVEF, needing to arrange for outpt Zio monitor and forward results to [facility] cards at dc Telemetry monitoring stable overnight, wei to 50s at present Needs repeat ECHo 6-12 months and clearance by cards prior to exercise start outpt (3) Hypokalemia: Plan: Hypokalemia of 3.1 on admission, repleted and augmented appropriately. Likely 2nd to n/v on admission. Normal on AM labs with IVF as above and will monitor tolerance of diet/further replacement if ongoing issues (4) Marijuana user: Plan: Marijuana positive in the ED, which may be contributing to symptoms of nausea and vomiting. UDS was otherwise negative PPI/H2 for GI proph as above and GI consult/outpt EGD planned Encouraged cessation (5) Abnormal urinalysis: Plan: +UA/foul smelling last night Similar admission w/ concerns for such and possible/started Ceftriaxone IV and will monitor cx CTAP on admission without significant urinary/bladder findings Plan Dispo: liquid diet, adv as tolerated. biofire w/ next BM as able. PPI increased to BID and added carafate and will need outpatient GI follow up Continues on colchicine for myocarditis and needs outpt Zio monitor and f/u [facility] Cardiology Admission and Anticipated Discharge Date Admission Date: January 17, 2024 Supervising Physician Co-Signing Physician Notes The patient was not seen by me. The chart was reviewed. Case discussed with VIOLETTA Mei. Agree with assessment and plan Subjective Eval this morning, episode of emesis last night after potatoes and apple juice and again this morning with orange juice. reports some blood streek to emesis last night but not this morning. will discuss with GI but considering increasing PPI to BID/adding carafate but w/ repeated n/v could have small tear as well and to alert if any repeat emesis with blood. Discussed Mirena IUD, has been in place 2 years. Doesn't get period but has hormonal swings monthly reported, occurs at end/beginning of month and could be contributing. Discussed possible removal and consideration in f/u for alternatives but she has issues with migraine and limited options and why she has Mirena at this time. Discussed cards recs for monitor and will arrange at time of dc. She reports only being able to tolerate water and popsicles and will continue the liquid diet for now. Passing more gas but no bowel movement and will add colace BID. Rib discomfort from nausea/vomiting, will order lidocaine patch and monitor for need for colchicine if needed. NSR on monitor, did have elevations this morning with n/v. Discussed urine cx appearing positive and foul smell and prior hospitalizations with similar and abx/monitoring cx. Questions/concerns addressed at this time. Results & Data Results & Data Vital Signs (Past 12 Hours) Vital Signs Temp Pulse Pulse Resp BP Pulse Ox O2 Del Method 01/18/24 07:00 37.2 C 67 16 126/83 96 Room Air 01/18/24 03:16 36.8 C 73 14 121/74 99 Room Air 01/17/24 23:00 36.8 C 64 19 122/85 100 Room Air Laboratory Results 01/18/24 05:48 01/18/24 05:48 PG Care Time/CCT Total # of Minutes Spent Total Time Spent with Patient: Total time spent is greater than 50% in coordination of care (as documented) at patient's floor/unit and/or counseling patient: Coding Level of Care Code 43604 SUB INP/OBS CARE 3/50MIN Diagnoses Nausea & vomiting R11.2 Myocarditis I51.4 Hypokalemia E87.6 Marijuana user F12.90 Abnormal urinalysis R82.90
--- NOTE | 2024-01-18 08:41 | Electrocardiogram Report ---
Test Reason : Blood Pressure : */* mmHG Vent. Rate : 57 BPM Atrial Rate : 57 BPM P-R Int : 120 ms QRS Dur : 82 ms QT Int : 478 ms P-R-T Axes : 56 61 68 degrees QTcB Int : 465 ms Sinus bradycardia Otherwise normal ECG When compared with ECG of 17-Jan-2024 00:28, No significant change was found Confirmed by Brittany Fallon (Alina) on 01/18/2024 8:41:08 AM Referred By: REFERRED SELF Confirmed By: Brittany Fallon
--- NOTE | 2024-01-18 08:45 | Cardiology Progress Note ---
Date of Service January 18, 2024 Assessment & Plan (1) Myocarditis: (2) Isorhythmic atrioventricular dissociation: (3) Prolonged QT interval: Plan Will review rhythm strips overnight. As long as no new changes OK to DC from cardiac standpoint. Will do 48 hour monitor at time of DC. This can be done when DC Will follow up in office in 2 weeks and will schedule recheck limited ECHO to confirm EF remains normal. Thank you for allowing us to participate in her care. Cardiology will sign off for now. Please schedule 48 hour monitor at DC (needs ordered as an outpatient study) Admission and Anticipated Discharge Date Admission Date: January 17, 2024 Subjective Without further issues ECHO reviewed no wall motion abnormalities EF remains normal still very nauseated and vomiting unable to keep liquids down Review of Systems Review of Systems: All systems reviewed & are unremarkable except as noted in HPI & below Physical Exam Physical Exam: without changes Respiratory: normal respiratory effort, lungs clear to auscultation Cardiovascular: heart regular no murmurs Results & Data Vital Signs (Past 12 Hours) Vital Signs Temp Pulse Pulse Resp BP Pulse Ox O2 Del Method 01/18/24 07:00 37.2 C 67 16 126/83 96 Room Air 01/18/24 03:16 36.8 C 73 14 121/74 99 Room Air 01/17/24 23:00 36.8 C 64 19 122/85 100 Room Air Laboratory Results Abnormal lab results 01/17/24 01/18/24 Range/Units 15:05 05:48 RDW Std Deviation 34.3 L (36.4-46.3) fL RDW Coeff of [place] 11.0 L (11.5-14.5) % [place] # (Auto) 0.67 H (0.11-0.59) K/uL Total Bilirubin 1.3 H (0.2-1.0) mg/dl Direct Bilirubin 0.3 H (0-0.2) mg/dl Urine Appearance Cloudy A (Clear) Urine Protein Trace H (Negative) Urine Ketones 3+ H (Negative) Ur Leukocyte Esterase 1+ H (Negative) Urine WBC (Auto) 11-20 H (0-5) /hpf U Epithel Cells (Auto) 11-20 H (0-2) /hpf Urine Bacteria (Auto) 1+ H (None Seen) ECG Additional Comments: NSR normal ECG prior changes resolved
[2024-01-18] MEDS: PANTOprazole 40 MG in SYRINGE 0 ML IV SCH (10:58)
[2024-01-18] MEDS: DOCUSATE SODIUM 100 MG CAP PO SCH (11:02)
[2024-01-18] MEDS: LIDOCAINE 5% 1 PATCH TD SCH (11:33)
[2024-01-18 11:47] LABS: EBV Nuclear Ag Antibody >600.00 U/mL; Epstein Barr Virus Early Ag Ab <9.00 U/mL
[2024-01-18] MEDS: SUCRALFATE 1 GM/10 ML UDC PO SCH (12:57)
[2024-01-18 14:14] LABS: Adenovirus F 40/41 PCR Not Detected (NotDetected); Astrovirus PCR Not Detected (NotDetected); Campylobacter PCR Not Detected (NotDetected); Cryptosporidium PCR Not Detected (NotDetected); Cyclospora cayetanensis PCR Not Detected (NotDetected); Entamoeba histolytica PCR Not Detected (NotDetected); Enteroaggregative E.coli(EAEC) Not Detected (NotDetected); Enteropathogenic E.coli (EPEC) Not Detected (NotDetected); Enterotoxigenic E.coli (ETEC) Not Detected (NotDetected); Giardia lamblia PCR Not Detected (NotDetected); Norovirus GI/GII PCR Not Detected (NotDetected); Plesiomonas shigelloides PCR Not Detected (NotDetected); Rotavirus A PCR Not Detected (NotDetected); Salmonella PCR Not Detected (NotDetected); Sapovirus PCR Not Detected (NotDetected); Shiga-like Toxin E.coli (STEC) Not Detected (NotDetected); Shigella/Enteroinvasive E.coli Not Detected (NotDetected); Vibrio cholerae PCR Not Detected (NotDetected); Vibrio species PCR Not Detected (NotDetected); Yersinia enterocolitica PCR Not Detected (NotDetected)
[2024-01-18 19:23] LABS: Babesia microti DNA Not Detected (Not Detected)
[2024-01-18] MEDS: HYDROmorphone INJ 0.5 MG/0.5 ML SYR IV STA (20:42)
[2024-01-18] MEDS: LIDOCAINE 5% 1 PATCH TD STA (21:01)
[2024-01-19 06:02] LABS: Hematocrit (blood only) 37.5 % (37.0-47.0); Hemoglobin 12.9 g/dl (12.0-16.0); Mean Corpuscular Hemoglobin 30.2 pg (25.0-34.0); Mean Corpuscular Hgb Conc 34.4 g/dL (32.0-36.0); Mean Corpuscular Volume 87.8 fL (80.0-100.0); Mean Platelet Volume 10.5 fL (9.4-12.4); Platelet Count 203 K/uL (130-400); RDW Coefficient of Variation 11.4 % (11.5-14.5); RDW Standard Deviation 36.8 fL (36.4-46.3); Red Blood Count 4.27 M/uL (4.20-5.40); White Blood Count 6.56 K/ul (4.8-10.8)
[2024-01-19 06:22] LABS: BUN Creatinine Ratio 10.4 (10-20); Creatinine Clr Calc Pharmacy 93.8 ml/min; Potassium 3.5 mmol/L (3.5-5.1)
[2024-01-19 06:38] LABS: Thyroid Stimulating Hormone 1.266 uIu/ml (0.300-4.500)
[2024-01-19 06:47] LABS: Folate (Folic Acid),Ser orPlas 15.4 ng/ml (>5.38)
--- NOTE | 2024-01-19 07:45 | Hospitalist Progress Note ---
Date of Service January 19, 2024 Assessment & Plan (1) Nausea & vomiting: Plan: Presented to ED with nausea and vomiting since . CTAP on admission w/ colon w/ mildly thickened waled, ?mild nonspecific colitis. Of note, CTAP in Feb 2023 w/ mild enteritis. ?ever had GI outpt ref Resp biofire negative. From the ED received the following: Normal saline 2 L, Zofran 4 mg IV, Phenergan 12.5 mg IV, famotidine 20 mg IV, and potassium chloride 10 mEq IV. Liquid diet UDS + marijuana, daily user. Zofran --> Compazine as works better Topical capsacin not able to be tolerated Advanced diet to regular last evening 01/16 with increased n/v following apple juice and potatoes with some blood streak but nothing with emesis following orange juice this morning and discussed with GI provider/consult 01/16 given repeat episodes, now given reports blood in emesis but stable hgb/renal function and changes made: INCREASED PPI TO BID, ADDED CARAFATE. Outpt GI EGD to be arranged. IVF x 1L s/ LR @ 20k and will monitor ability this evening Continue compazine, diet backed to full liquid and will monitor PO intake/further vomiting if needing to resume IVF +flatus but no further BM since admission. Stool biofire ordered given diarrhea last week leading to viral myocarditis. Colace BID added and remains on cholchicine as below IF ONGOING ISSUES THIS EVENING/OVERNIGHT WILL PLAN FOR EMEND UA obtained last evening, foul smelling and prior admission w/ UTI contributing to n/v and CEFTRIAXONE IV STARTED/CONTINUED. Monitor final urine cx Of note, also with Mirena IUD in place/hx migraines and cycles and does occur at end of month/beginning of month time period and ?if contributing. Difficuly with alternatives with her hx migraines but can consider outpt f/u with DOCTOR OF OSTEOPATHY for ongoing discussions 01/18 Stayed on liquid diet per request overnight. Continues PPI BID/carafate. If tolerating PO intake can plan to convert to PO PPI over IV. Electrolytes/renal function STABLE OFF IVF overnight Urine cx all mod counts skin samm however given improvement w/ continued use and prior admission w/ such and foul smelling urine on collection continues on IV abx and repeat urine cx pending. Consider 3 days IV Ceftriaxone for cystitis given no acute findings on CTAP/no CVA tenderness to suggest pyelo . Ca elevation on admission suspected 2nd to dehydration, will check Vit D given prior elevation to ensure not low. ?if low, ?gastroparesis +BM last evening, stool biofire NEGATIVE Continues on colchicine BID for myocarditis (2) Myocarditis: Plan: Myocarditis also was reporting associated chest heaviness and found to have elevated troponin and findings consistent with a viral myocarditis and elevated troponin to peak 1120. Admitted to telemetry for serial cardiac enzymes, serial EKG's, cardiac rhythm monitoring and a 2-D echocardiogram with Dopplers. EKG w/ peaked T waves, prolonged QT with PACs. EKG normalized on repeat but w/ sinus wei w/ HR 50s. Troponin 1042--> 1120--> 619--> 559.3. Did have diarrhea last week/no recent vaccines. ?post viral myocarditis. Respiratory biofire negative. Stool biofire ordered but not yet obtained TSH wnl, Lyme negative.. LEO pending/EBV pending Cardiology consulted STARTED/continues ON COLCHICINE 0.6mg BID. GI proph as above ECHO w/ normal LVF, mild-moderate mitral valve regurgitation Repeat ECHO w/ normal LVEF, needing to arrange for outpt Zio monitor and forward results to [facility] cards at [place] Telemetry monitoring stable overnight, wei to 50s at present Needs repeat ECHo 6-12 months and clearance by cards prior to exercise start outpt (3) Hypokalemia: Plan: Hypokalemia of 3.1 on admission, repleted and augmented appropriately. Likely 2nd to n/v on admission. Normal on AM labs with IVF as above and will monitor tolerance of diet/further replacement if ongoing issues (4) Marijuana user: Plan: Marijuana positive in the ED, which may be contributing to symptoms of nausea and vomiting. UDS was otherwise negative PPI/H2 for GI proph as above and GI consult/outpt EGD planned Encouraged cessation (5) Abnormal urinalysis: Plan: +UA/foul smelling last night Similar admission w/ concerns for such and possible/started Ceftriaxone IV and will monitor cx CTAP on admission without significant urinary/bladder findings Plan Dispo: liquid diet, adv as tolerated. biofire w/ next BM as able. PPI increased to BID and added carafate and will need outpatient GI follow up Continues on colchicine for myocarditis and needs outpt Zio monitor and f/u [facility] Cardiology Admission and Anticipated Discharge Date Admission Date: January 17, 2024 Results & Data Results & Data Vital Signs (Past 12 Hours) Vital Signs Temp Pulse Pulse Pulse Resp BP Pulse Ox 01/19/24 07:26 36.7 C 60 19 111/70 100 01/19/24 03:06 36.8 C 60 16 111/62 97 01/18/24 23:20 60 01/18/24 23:05 36.6 C 68 16 121/75 99 O2 Del Method 01/19/24 07:26 Room Air 01/19/24 03:06 Room Air 01/18/24 23:20 01/18/24 23:05 Room Air Laboratory Results 01/19/24 05:35 01/19/24 05:35 B12 730 Folate 15.4 TSH 1.266 Stool biofire NEGATIVE Mag 2.0 PG Care Time/CCT Total # of Minutes Spent Total Time Spent with Patient: Total time spent is greater than 50% in coordination of care (as documented) at patient's floor/unit and/or counseling patient: Coding Diagnoses Nausea & vomiting R11.2 Myocarditis I51.4 Hypokalemia E87.6 Marijuana user F12.90 Abnormal urinalysis R82.90
[2024-01-19 08:28] LABS: Marijuana Quant, GCMS Urine 300 ng/mL (<5)
[2024-01-19 10:46] VITALS: RESP 18; TEMP 98.2
--- NOTE | 2024-01-19 15:45 | Discharge Summary ---
Discharge Summary Date of Service January 19, 2024 Principal Dx & Hospital Course #1 = Principal Diagnosis (1) Nausea & vomiting: Presented to ED with nausea and vomiting since . CTAP on admission w/ colon w/ mildly thickened waled, ?mild nonspecific colitis. Of note, CTAP in Feb 2023 w/ mild enteritis. Has never had GI f/u in the past. No family hx colon CA to note Respiratory biofire negative, stool biofire negative UDS + for marijuana, daily user. Concerns for CVS not excluded but not able to joesph capsacin cream. IVF/supportive care with antiemetics and electrolyte replacement provided along with IV PPI and increased to PPI BID with H2 landry and added carafate following GI consultation and reported blood tinge to sputum PM 01/16 but no further blood on subsequent emesis and hgb stable on IVF. No blood hx in stool at all reported. Diet liquid --> full liquid, eventual upgrade to regular/lactose free following start of Ceftriaxone IV for possible UTI given prior admission in 2022 with similar symptoms and reported foul smelling urine on collection per nurse on 01/16 but cx final mixed samm and was resent and pin-point growth at discharge and received 3 doses IV Ceftriaxone and continued 2 additional doses of Keflex to complete the course Discussed possible PMS/period cramping/hormones could be contributing as well given reports occuring at the end/beginning of the month but could have more than one process. Difficulty with hx migraines for alternative agents and has Mirena but discussed to follow up to see if needing removed as rec'd last admission and was eval'd by LOAD DROPPER at that time and felt no issue with current jaskaran cement and STI testing negative at that time. Tolerated advancement of diet without further n/v, moving bowels and feeling well. Did encourage limited lactose for now w/ possible viral colitis however biofire negative. ?underlying celiac vs EoE vs other. Discussed and seen by GI inpatient and should have outpatient EGD once resolved from myocarditis as below Myocarditis Alma was also was reporting associated chest heaviness and found to have elevated troponin and findings consistent with a viral myocarditis and elevated troponin to peak 1120. Admitted to telemetry for serial cardiac enzymes, serial EKG's, cardiac rhythm monitoring and a 2-D echocardiogram with Dopplers. EKG w/ peaked T waves, prolonged QT with PACs. EKG normalized on repeat but w/ sinus wei w/ HR 50s. Troponin 1042--> 1120--> 619--> 559.3. Did have diarrhea last week/no recent vaccines. ?post viral myocarditis. Respiratory biofire negative. Stool biofire negative. LEO negative, EBV pierre ggestive of prior infection. Lyme/anaplasmosis and babesia testing NEGATIVE and CRP/ESR without elevation but per cardiology suspect viral myocarditis and started treatment with colchicine 0.6m BID and ECHO repeated with normal LV function and plans for repeat ECHO in follow up in 2 weeks and arranging for outpatient monitor with results to [facility] Cardiology. Per cards, continue colchicine for 3 months. 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 with recs to avoid exercise until cleared was given work note to be off work until seen in follow up (could have PCP discuss w/ cards at appointment being arranged by fur mixer operator to call/touch base if needing to return sooner however Alma agreeable to current plan) No further CP/SOB prior to discharge and telemetry stable HR, SR in 50-60s, BP 112/71 and 99% on RA (2) Myocarditis: as above (3) Hypokalemia: 2nd to n/v on admission, IVF/electrolyte replacement and remaining stable off IVF/replacement with advancement of diet (4) Marijuana user: Marijuana positive in the ED, which may be contributing to symptoms of nausea and vomiting as discussed, CVS not excluded. Zofran used but transitioned to compazine with better results. Encouraged cessation/avoidance GI f/u as above and dc on PPI/H2/carafate with recs for outpt EGD for eval (5) Abnormal urinalysis: UA appearing positive and reports of foul smell. Similar admission 2022 w/ concerns for such started Ceftriaxone IV and initial cx mixed samm and asked for repeat urine cx which was sent (clean sample/technique requested) and pin-point growth on preliminary and decision to provide 3rd dose Ceftriaxone prior to discharge and continue PO Keflex for another 2 days given CTAP without significant findings and no CVA tenderness on exam (6) Vitamin D deficiency: checked, low at 23. Ca elevated on admission suspected 2nd to dehydration from n/v/d prior to admission and replacement sent at discharge Notes For Next Care Provider Ensure follow up with cardiology for repeat ECHO, follow up holter monitor results to [facility] cardiology. 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 Does have hx elevated TB but appears more benign like [place] but should have follow up for evaluation given ongoing issue but also discussed/recommended to Alma to avoid marijuana use given concerns for cyclic vomiting syndrome as well. Did not require abortive therapy with Emend once started treatment for UTI. Medication Changes From Visit Colchicine 0.6mg PO BID x 3 months per cardiology Protonix 40mg PO BID, pepcid 20mg PO BID, carafate QID x 1 month Keflex 500mg PO BID x 2 more days for total 5 day course given 3 days IV therapy Vitamin D 25mcg PO daily Admission HPI Per Admitting Provider The patient is a 23-year-old female with a past medical history including previous admission for nausea and vomiting, tobacco and vaping use, use of marijuana. She presents to the emergency department symptoms as noted above. In the emergency department she was noted to be bradycardic with heart rate into the low 50s, and laboratories were significant for a potassium of 3.1. She was given hold medications including Zofran and Phenergan, but with persistent symptoms, she was referred for evaluation for admission Admission Exam Per Admitting Provider The patient is awake, alert and oriented 3, well developed and well nourished, normocephalic and atraumatic, lying in bed and in no acute distress. HEENT--PERRL, EOMI, mucous membranes and oropharynx mildly dry. Neck--supple. No JVD. No bruits. Thyroid normal, trachea midline, no adenopathy. Heart--bradycardic, occasional premature contractions. No murmurs, rubs or gallops. Lungs--clear bilaterally, no respiratory distress, no accessory muscle use. Abdomen--normal bowel sounds and soft. Nontender. Nondistended, no hernias or masses, no organomegaly. Extremities--no cyanosis or clubbing. No edema. There are good distal pulses b/l. Dermatologic--normal skin turgor, normal color, no abnormal lymph nodes, no rash. Neurologic--cranial nerves II through XII grossly intact. Rheumatologic--normal range of motion. Psychiatric--normal affect. Discharge Exam General : 23 yo female sitting up in bed, appears MUCH improved, just took a shower, tolerated lunch and inquiring about discharge HEENT: head atraumatic, normocephalic, mmm, trachea midline Resp: even/unlabored, no w/c/r, 99% on room air CV: NSR on telemetry, rates 50-60s, no significant m/r/g, no pitting edema/calf tenderness GI: +BS, soft/NT ; no CVA tenderness MSK/Neuro: lidocaine patch to lower back, nonfocal, answering questions appropriately, no slurred speech or facial droop, strength equal bilaterally Psych: AOx3, cooperative and pleasant during encounter Discharge Plan Discharge Items Patient Disposition: Home - Self-Care Reason For Visit: INTRACTABLE N/V, HYPOKALEMIA, BRADYCARDIA Discharge Diagnosis: Myocarditis (inflammation of cardiac muscles of the heart), intractable nausea/vomiting, possible UTI, possible gastritis/peptic ulcer disease Condition on Discharge: Fair Goals: You have been hospitalized for an acute medical problem. During your stay at [facility], we have made an effort to correct the problem that brought you to the hospital while keeping you as comfortable as possible. Medications were used to bring your condition under control and your discharge instructions will include directions for any medications you should take after leaving the hospital. Please make sure you see your Primary Care Provider as part of your follow up plan. Activity: As commented below Non-emergency contact: Primary Care Provider, Entertainment Agent and Lieutenant Shift Supervisor Call non-emergency contact if: you have any medication questions, your symptoms worsen, your pain is concerning for you and you have a fever Follow-up/Referrals: Navya Houser PA-C [Physician Coronary Care Unit Nurse] - 01/24/24 11:00 am (hospital follow up Will need to schedule establish care appointment at this appointment) Daniel Phan DO [Physician] - (Office will reach out to schedule) Brittany Fallon DO [Physician] - 02/14/24 2:45 pm PCP,NO [Primary Care Provider] - Diet: Heart Healthy Diet Comment: lactose free Addtl Attending Provider Instructions: You have been hospitalized for abdominal pain and chest heaviness. Chest imaging was negative for pneumonia. Cat scan of abdomen/pelvis showed some thickening of the colon/possible nonspecific colitis but stool testing was negative. Troponin levels were elevated (enzymes that can tell us about muscle of the heart) and cardiology was consulted and suspect you have a viral myocarditis (inflammation) and treatment with colchicine 0.6mg by mouth twice daily for a total of 3 months. Repeat ultrasound of the heart showed normal pumping function. We are arranging for cardiac cath lab radiology technologist to wear at discharge and you will have follow up with [facility] cardiology and should NOT do any strenuous physial activity/exercising until cleared by cardiology in follow up. You should avoid marijuana to prevent issues with nausea/vomiting as discussed however I do wonder if you have underlying peptic ulcer disease given the nausea/vomiting and some blood reported but could be from wrenching. I did consult gastroenterology while in the hospital and you likely will benefit from EGD as an outpatient which is an endoscopic procedure to look for any irritation/inflammation or other issue but in the meantime are being continued on acid reflux medication called Protonix twice daily as well as carafate four times daily to help coat the lining of your stomach. You may consider doing a dietary log and see if maybe excluding certain foods may be beneficial. You should likely avoid dairy products for the next couple of days and then can resume as tolerated. We did have concerns for possible urinary tract infection as well however urine culture was negative but we did continue antibiotics given improvement and should be ok after the three days of IV antibiotics given while in the hospital today but are sending empirically on two more days of Keflex and urine cx on repeat has pin-point growth and may again be negative but I do suspect you had been developing infection given improvement with treatment. Vitamin D level was checked and low and we are sending you on supplementation for this as well. Please discuss with OB about possible alternatives to your IUD as possible PMS/cramping symptoms can be related to this given occurring around the same time as you usually get. Please follow up with primary care in the next 7-10 days to monitor your progress after discharge from the hospital and to help coordinate your care with specialists. Please follow up with cardiology in TWO WEEKS for repeat ECHO. You should remain OFF work until cleared by cardiology given your occupation/job at present time. You should also have follow up with GI for EGD as discussed. Please return to the ER with any increased abdominal pain, inability to tolerate oral intake, fever/chills, worsening chest pain or shortness of breath, or for any other symptoms concerning for you. Pending Studies at Discharge: Yes Studies:: urine culture - pin point growth, re-incubating Stand-Alone Forms: My [facility], Work/School Release, Smoking Cessation Medications and DC Order Prescriptions: New sucralfate 100 mg/mL Suspension 1 g PO QID 14 Days Qty: 560 0RF famotidine 20 mg Tablet 20 mg PO BID Qty: 60 0RF colchicine [Colcrys] 0.6 mg Tablet 0.6 mg PO BID 87 Days Qty: 174 0RF pantoprazole 40 mg tablet,delayed release (DR/EC) 40 mg PO BID Qty: 60 0RF cholecalciferol (vitamin D3) [Vitamin D3] 50 mcg (2,000 unit) capsule 50 mcg PO DAILY Qty: 30 0RF cephalexin 500 mg capsule 500 mg PO BID 2 Days Qty: 4 0RF Continued albuterol sulfate 90 mcg/actuation Hfa Aerosol Inhaler 2 puff INHALATION DIRECTED PRN (Reason: Shortness Of Breath Or Wheezing) Mirena 21 mcg/24 hours (8 yrs) 52 mg Intrauterine Device 21 mcg INTRAUTERINE CONTINOUS Nausea Medication 1 tab PO DIRECTED PRN (Reason: N/V) Rx Instructions: Per pt she thinks the medication starts with a D. No fill history for the m edication. She said it wasn't Zofran Discharge Orders: Discharge Order (Routine); Ordered 01/19/24 Ordered By: Annalise Márquez Admission Data Admit Date/Time: 01/17/24 16:41 Attending Provider: Geovanny Sam Admit Provider: Dennis Driscoll Primary Care Provider: PCP,NO Other Providers: Dennis Driscoll; Brittany Fallon; Daniel Phan Other Interventions: Discharge Summary Assessment (RN) Last Done: 01/19/24 16:02 Hospital Stay Data Consultations 01/15/24 19:26 ED Decision to Admit Stat 01/15/24 22:02 Consult Cardiology Routine 01/17/24 14:16 Consult Gastroenterology Routine Diagnostic Imagining Performed Chest/Abdomen X-ray 01/15/24 17:39 PA CHEST WITH ABDOMINAL SERIES CLINICAL HISTORY: Nausea and vomiting. FINDINGS: A PA chest radiograph is compared to study dated 06/14/2022. The cardiomediastinal silhouette is unremarkable. The lungs and pleural spaces are clear. No pneumothorax is seen. The bony thorax is grossly intact. Supine and erect abdominal radiographs are compared to abdominal radiograph and CT dated 01/14/2024. There is a nonobstructed abdominal bowel gas pattern. No evidence of intraperitoneal free air is seen. There are no abnormal abdominal calcifications. An intrauterine device is seen in the pelvis. The lumbosacral spine and bony pelvis appear intact. IMPRESSION: 1. No active disease in the chest. 2. Nonobstructed abdominal bowel gas pattern. ACT 112: Negative or not required by law. Electronically signed by: Bertram Solorzano M.D. 01/15/2024 7:19 PM Pending Results Patient Have Any Pending Studies at Discharge: No Discharge Instructions Given to Patient (Per Discharging Provider) You have been hospitalized for abdominal pain and chest heaviness. Chest imaging was negative for pneumonia. Cat scan of abdomen/pelvis showed some thickening of the colon/possible nonspecific colitis but stool testing was negative. Troponin levels were elevated (enzymes that can tell us about muscle of the heart) and cardiology was consulted and suspect you have a viral myocarditis (inflammation) and treatment with colchicine 0.6mg by mouth twice daily for a total of 3 months. Repeat ultrasound of the heart showed normal pumping function. We are arranging for cardiac cath lab radiology technologist to wear at discharge and you will have follow up with [facility] cardiology and should NOT do any strenuous physial activity/exercising until cleared by cardiology in follow up. You should avoid marijuana to prevent issues with nausea/vomiting as discussed however I do wonder if you have underlying peptic ulcer disease given the nausea/vomiting and some blood reported but could be from wrenching. I did consult gastroenterology while in the hospital and you likely will benefit from EGD as an outpatient which is an endoscopic procedure to look for any irritation/inflammation or other issue but in the meantime are being continued on acid reflux medication called Protonix twice daily as well as carafate four times daily to help coat the lining of your stomach. You may consider doing a dietary log and see if maybe excluding certain foods may be beneficial. You should likely avoid dairy products for the next couple of days and then can resume as tolerated. We did have concerns for possible urinary tract infection as well however urine culture was negative but we did continue antibiotics given improvement and should be ok after the three days of IV antibiotics given while in the hospital today but are sending empirically on two more days of Keflex and urine cx on repeat has pin-point growth and may again be negative but I do suspect you had been developing infection given improvement with treatment. Vitamin D level was checked and low and we are sending you on supplementation for this as well. Please discuss with OB about possible alternatives to your IUD as possible PMS/cramping symptoms can be related to this given occurring around the same time as you usually get. Please follow up with primary care in the next 7-10 days to monitor your progress after discharge from the hospital and to help coordinate your care with specialists. Please follow up with cardiology in TWO WEEKS for repeat ECHO. You should remain OFF work until cleared by cardiology given your occupation/job at present time. You should also have follow up with GI for EGD as discussed. Please return to the ER with any increased abdominal pain, inability to tolerate oral intake, fever/chills, worsening chest pain or shortness of breath, or for any other symptoms concerning for you. Supervising Physician Co-Signing Physician Notes The patient was not seen by me. The chart was reviewed. Case discussed with VIOLETTA Mei. Agree with assessment and plan Total Time Total Time Spent Total Time Spent (In Minutes): 50 Coding Level of Care Code 92936 INP/OBS DISCH >30 MIN Diagnoses Nausea & vomiting R11.2 Myocarditis I51.4 Hypokalemia E87.6 Marijuana user F12.90 Abnormal urinalysis R82.90 Vitamin D deficiency E55.9
[2024-01-19 15:48] VITALS: BP 104/65; O2SAT 99
[2024-01-19 16:03] VITALS: PULSE 60
== END 2024-01-19 17:23 | disposition home or self-care (01) | DRG 392 ==
LOC: 2E 17:14 → ED 17:14 → SUATTDRO 19:45 → 2E 21:07 → SUATTDRO 01-17 16:41